=== PATIENT | male | born 1965 | race American Indian/Alaskan Native ===

== ENCOUNTER 2018-07-23 16:25 | Emergency (ER) | payer SELFPAY ==
[2018-07-23] MEDS ORDERED: KEPPRA 1,000 MG/NS 0.75% 100ML 1,000 MG/100 ML BAG IV ONE (16:33)
[2018-07-23] MEDS ORDERED: XYLOCAINE CARDIAC IV ONE ×2 (16:34→16:45)
[2018-07-23] MEDS ORDERED: VERSED IV ONE (16:34)
[2018-07-23] MEDS ORDERED: AMIDATE IV ONE ×2 (16:34→16:45)
[2018-07-23] MEDS ORDERED: ZEMURON IV ONE ×2 (16:34→16:45)
[2018-07-23] MEDS ORDERED: NACL 0.9% 1000 ML IV ONE (16:42)
[2018-07-23] MEDS ORDERED: TYLENOL PO PRN (16:42)
[2018-07-23] MEDS ORDERED: VANCOMYCIN 1,000 MG in NACL 0.9% 500 ML 500 ML IV ONE (16:42)
[2018-07-23] MEDS ORDERED: VASELINE LIP THERAPY TP PRN (16:45)
[2018-07-23] MEDS ORDERED: DECADRON IV ONE (16:45)
[2018-07-23] MEDS ORDERED: ARTIFICIAL TEARS OPHTH OINT OU PRN (16:45)
--- NOTE | 2018-07-23 16:50 | Emergency Department Report ---
ED General Adult HPI - General Chief complaint: Altered Mental Status Stated complaint: SEIZURE Time Seen by Provider: 07/23/18 16:41 Source: EMS (verbal report received from EMS.ems notes not available at time of chart dictation) Mode of arrival: Stretcher Limitations: Altered Mental Status, Physical Limitation - History of Present Illness Initial comments: This is a 52-year-old gentleman who is not known to this provider previously, who is brought to the hospital by EMS As per verbal report from EMS, patient has had at least 3 seizures prior to arrival to the emergency room. Unknown if the patient has a history of seizures , if he takes any medicines, and unknown if he is having any symptoms. EMS reports normal fingerstick in the field. Upon arrival to the ER, the patient is sonorous, has shallow breathing and is actively drooling and not protecting his airway. Given history of multiple seizures without return to normal mental status, and his obvious inability to protect his airway, the patient is intubated by myself using rapid sequence induction techniques for airway protection. Marcus intubation, he is given 100 mg of lidocaine, 1 g of Keppra, he is placed on nasal cannula at 15 L/m and received bag valve mask ventilation. Direct laryngoscopy is performed, and a 7.5 endotracheal tube is inserted after direct visualization of the vocal cords was noted. Postintubation x-ray demonstrated placement of the tube at the level of the clavicles, the tube was advanced 3 cm. The remainder of the patient's primary and secondary survey were unremarkable with the exception of a temperature of 100.7. Given history of seizure, and fever, the patient is emergently and administratively consented by myself for emergency CT scan of the brain, as well as angiogram of the head and neck to exclude large vessel occlusion. In addition, given his fever, patient is placed in isolation precautions and he is treated empirically for community-acquired meningitis. A spinal tap was attempted by myself after he was administratively consented, but was unsuccessful. Laboratory studies showed acidosis, lactic acidosis, anion gap, leukocytosis, with normal renal function. Patient is also being given a banana bag as one nurse elicited a history from a family member over the phone that he has a history of alcohol dependence. -: This afternoon Quality: other Consistency: other Improves with: other Worsens with: other Associated Symptoms: seizure, other - Related Data Allergies Allergy/AdvReac Type Severity Reaction Status Date / Time Unable to Assess Allergy Verified 07/23/18 16:39 ED Review of Systems ROS: Stated complaint: SEIZURE Other details as noted in HPI Comment: Unobtainable due to pts medical conditions ED Physical Exam - General Limitations: Altered Mental Status, Physical Limitation General appearance: obtunded - Head Head exam: Present: atraumatic, normocephalic - Eye Eye exam: Present: PERRL - ENT ENT exam: Present: normal orophraynx, normal external ear exam, other (copious secretions noted in the oropharynx) - Neck Neck exam: Present: normal inspection. Absent: tenderness, meningismus - Respiratory Respiratory exam: Present: respiratory distress, rhonchi - Cardiovascular Cardiovascular Exam: Present: regular rate, tachycardia, normal heart sounds - GI/Abdominal GI/Abdominal exam: Present: soft, normal bowel sounds. Absent: distended, tenderness, guarding, rigid, pulsatile mass - Extremities Exam Extremities exam: Present: pedal edema, other (2+ pulses in the upper, lower extremity) - Back Exam Back exam: Present: normal inspection. Absent: paraspinal tenderness, vertebral tenderness - Neurological Exam Neurological exam: Present: altered, other (prior to paralysis, moving 4 extremities spontaneously) - Psychiatric Psychiatric exam: Present: other (unable to assess, postictal, nonverbal) - Skin Skin exam: Present: dry ED Course Vital Signs 07/23/18 07/23/18 07/23/18 16:26 16:30 16:37 Temperature 100.7 F H Pulse Rate 164 166 H 140 H Respiratory 35 25 H Rate Blood Pressure 150/80 138/95 Blood Pressure 150/80 [Left] O2 Sat by Pulse 100 100 Oximetry 07/23/18 07/23/18 07/23/18 16:45 16:46 17:00 Temperature Pulse Rate 197 H 175 H 182 H Respiratory 14 15 Rate Blood Pressure 187/130 150/80 150/80 Blood Pressure [Left] O2 Sat by Pulse 97 100 96 Oximetry 07/23/18 07/23/18 07/23/18 17:16 17:30 17:44 Temperature Pulse Rate 200 H 196 H Respiratory 16 16 Rate Blood Pressure 187/130 187/130 Blood Pressure [Left] O2 Sat by Pulse 96 99 Oximetry 07/23/18 17:46 Temperature Pulse Rate 193 H Respiratory 15 Rate Blood Pressure 182/115 Blood Pressure [Left] O2 Sat by Pulse 97 Oximetry - Reevaluation(s) Reevaluation #1: 07/23/18 19:[address] angiogram of the head and neck was interpreted as negative for large vessel occlusion. A noncontrast CT scan of the brain is negative for acute disease. - Intubation Time Out Performed: Yes Sedative: Etomidate Mg Given: 20 Paralytic: Rocuronium Mg Given: 100 Laryngoscope: Abby Size: 3 ET Tube Size: 7.5 Tube Secured Depth (cm): 23 Tube Secured Location: teeth Tube Placement Confirmation: visualized tube passing t, equal breath sounds bilat, no breath sounds over epi, confirmation by capnometr Patient Tolerated Procedure: well Intubation Complications: none - Lumbar Puncture Consent Obtained: emergent situation Time Out Performed: Yes Indication for Procedure: fever work up, change in mental status Patient Position: right lateral decubitus Skin Prep: Povidone-Iodine 1% Local Anesthetic Used: Lidocaine 1% Amount of anesthesia used (mls): 6 Spinal Needle Gauge: 20G Spinal Needle Length: 3in Interspace Used: L4-L5 Complications: unable to obtain CSF, traumatic tap Patient Tolerated Procedure: well ED Medical Decision Making - Lab Data Result diagrams: 07/23/18 16:42 07/23/18 16:42 Vital Signs 07/23/18 07/23/18 07/23/18 16:26 16:30 16:37 Temperature 100.7 F H Pulse Rate 164 166 H 140 H Respiratory 35 25 H Rate Blood Pressure 150/80 138/95 Blood Pressure 150/80 [Left] O2 Sat by Pulse 100 100 Oximetry 07/23/18 07/23/18 07/23/18 16:45 16:46 17:00 Temperature Pulse Rate 197 H 175 H 182 H Respiratory 14 15 Rate Blood Pressure 187/130 150/80 150/80 Blood Pressure [Left] O2 Sat by Pulse 97 100 96 Oximetry 07/23/18 07/23/18 07/23/18 17:16 17:30 17:44 Temperature Pulse Rate 200 H 196 H Respiratory 16 16 Rate Blood Pressure 187/130 187/130 Blood Pressure [Left] O2 Sat by Pulse 96 99 Oximetry 07/23/18 17:46 Temperature Pulse Rate 193 H Respiratory 15 Rate Blood Pressure 182/115 Blood Pressure [Left] O2 Sat by Pulse 97 Oximetry Lab Results 07/23/18 07/23/18 07/23/18 Range/Units 16:30 16:42 16:42 WBC (4.5-11.0) K/mm3 RBC (3.65-5.03) M/mm3 Hgb (11.8-15.2) gm/dl Hct (35.5-45.6) % MCV (84-94) fl MCH (28-32) pg MCHC (32-34) % RDW (13.2-15.2) % Plt Count (140-440) K/mm3 Lymph % (Auto) Lymph # Add Manual Diff Total Counted Seg Neutrophils % Seg Neuts % (Manual) (40.0-70.0) % Band Neutrophils % % Lymphocytes % (Manual) (13.4-35.0) % Reactive Lymphs % (Man) % Monocytes % (Manual) (0.0-7.3) % Eosinophils % (Manual) (0.0-4.3) % Basophils % (Manual) (0.0-1.8) % Metamyelocytes % % Myelocytes % % Promyelocytes % % Blast Cells % % Nucleated RBC % Seg Neutrophils # Man (1.8-7.7) K/mm3 Band Neutrophils # K/mm3 Lymphocytes # (Manual) (1.2-5.4) K/mm3 Abs React Lymphs (Man) K/mm3 Monocytes # (Manual) (0.0-0.8) K/mm3 Eosinophils # (Manual) (0.0-0.4) K/mm3 Basophils # (Manual) (0.0-0.1) K/mm3 Metamyelocytes # K/mm3 Myelocytes # K/mm3 Promyelocytes # K/mm3 Blast Cells # K/mm3 WBC Morphology Hypersegmented Neuts Hyposegmented Neuts Hypogranular Neuts Smudge Cells Toxic Granulation Toxic Vacuolation Dohle Bodies Pelger-Huet Anomaly Jez Rods Platelet Estimate Clumped Platelets Plt Clumps, EDTA Large Platelets Giant Platelets Platelet Satelliting Plt Morphology Comment RBC Morphology Dimorphic RBCs Polychromasia Hypochromasia Poikilocytosis Anisocytosis Microcytosis Macrocytosis Spherocytes Pappenheimer Bodies Sickle Cells Target Cells Tear Drop Cells Ovalocytes Helmet Cells Corral-Mendenhall Bodies [place] Rings Zafar Cells Bite Cells Crenated Cell Elliptocytes Acanthocytes (Spur) Rouleaux Hemoglobin C Crystals Schistocytes Malaria parasites Ike Bodies Hem Pathologist Commnt PT (12.2-14.9) Sec. INR (0.87-1.13) APTT (24.2-36.6) Sec. POC ABG pH (7.35-7.45) POC ABG pCO2 (35-45) POC ABG pO2 (80-105) POC ABG HCO3 POC ABG Total CO2 POC ABG O2 Sat POC ABG Base Excess FiO2 % Sodium (137-145) mmol/L Potassium (3.6-5.0) mmol/L Chloride (98-107) mmol/L Carbon Dioxide (22-30) mmol/L Anion Gap mmol/L BUN (9-20) mg/dL Creatinine (0.8-1.5) mg/dL Estimated GFR ml/min BUN/Creatinine Ratio % Glucose (75-100) mg/dL POC Glucose 182 H (70-105) Lactic Acid (0.7-2.0) mmol/L Calcium (8.4-10.2) mg/dL Total Bilirubin (0.1-1.2) mg/dL AST (5-40) units/L ALT (7-56) units/L Alkaline Phosphatase (35-129) units/L Total Creatine Kinase (55-170) units/L Troponin T (0.00-0.029) ng/mL Total Protein (6.3-8.2) g/dL Albumin (3.9-5) g/dL Albumin/Globulin Ratio % Urine Color Yellow (Yellow) Urine Turbidity Cloudy (Clear) Urine pH 5.0 (5.0-7.0) Ur Specific [place] 1.015 (1.003-1.030) Urine Protein >500 (Negative) mg/dL Urine Glucose (UA) Neg (Negative) mg/dL Urine Ketones Neg (Negative) mg/dL Urine Blood Sm (Negative) Urine Nitrite Pos (Negative) Urine Bilirubin Neg (Negative) Urine Urobilinogen < 2.0 (<2.0) mg/dL Ur Leukocyte Esterase Sm (Negative) Urine WBC (Auto) 55.0 H (0.0-6.0) /HPF Urine RBC (Auto) 10.0 (0.0-6.0) /HPF U Epithel Cells (Auto) 4.0 (0-13.0) /HPF Urine Bacteria (Auto) 1+ (Negative) /HPF Amorphous Crystals 1+ Salicylates (2.8-20.0) mg/dL Acetaminophen (10.0-30.0) ug/mL Plasma/Serum Alcohol (0-0.07) % Blood Type A POSITIVE Antibody Screen Negative Crossmatch See Detail 07/23/18 07/23/18 07/23/18 Range/Units 16:42 16:42 16:42 WBC 18.2 H (4.5-11.0) K/mm3 RBC 4.23 (3.65-5.03) M/mm3 Hgb 12.0 (11.8-15.2) gm/dl Hct 37.7 (35.5-45.6) % MCV 89 (84-94) fl MCH 28 (28-32) pg MCHC 32 (32-34) % RDW 17.8 H (13.2-15.2) % Plt Count 256 (140-440) K/mm3 Lymph % (Auto) [employer] Operator Lymph # Electric [employer] Operator Add Manual Diff Complete Total Counted 100 Seg Neutrophils % [employer] Operator Seg Neuts % (Manual) 39.0 L (40.0-70.0) % Band Neutrophils % 0 % Lymphocytes % (Manual) 57.0 H (13.4-35.0) % Reactive Lymphs % (Man) 0 % Monocytes % (Manual) 4.0 (0.0-7.3) % Eosinophils % (Manual) 0 (0.0-4.3) % Basophils % (Manual) 0 (0.0-1.8) % Metamyelocytes % 0 % Myelocytes % 0 % Promyelocytes % 0 % Blast Cells % 0 % Nucleated RBC % Not Reportable Seg Neutrophils # Man 7.1 (1.8-7.7) K/mm3 Band Neutrophils # 0.0 K/mm3 Lymphocytes # (Manual) 10.4 H (1.2-5.4) K/mm3 Abs React Lymphs (Man) 0.0 K/mm3 Monocytes # (Manual) 0.7 (0.0-0.8) K/mm3 Eosinophils # (Manual) 0.0 (0.0-0.4) K/mm3 Basophils # (Manual) 0.0 (0.0-0.1) K/mm3 Metamyelocytes # 0.0 K/mm3 Myelocytes # 0.0 K/mm3 Promyelocytes # 0.0 K/mm3 Blast Cells # 0.0 K/mm3 WBC Morphology Not Reportable Hypersegmented Neuts Not Reportable Hyposegmented Neuts Not Reportable Hypogranular Neuts Not Reportable Smudge Cells Not Reportable Toxic Granulation Not Reportable Toxic Vacuolation Not Reportable Dohle Bodies Not Reportable Pelger-Huet Anomaly Not Reportable Jez Rods Not Reportable Platelet Estimate Consistent w auto Clumped Platelets Not Reportable Plt Clumps, EDTA Not Reportable Large Platelets Not Reportable Giant Platelets Not Reportable Platelet Satelliting Not Reportable Plt Morphology Comment Not Reportable RBC Morphology Normal Dimorphic RBCs Not Reportable Polychromasia Not Reportable Hypochromasia Not Reportable Poikilocytosis Not Reportable Anisocytosis Not Reportable Microcytosis Not Reportable Macrocytosis Not Reportable Spherocytes Not Reportable Pappenheimer Bodies Not Reportable Sickle Cells Not Reportable Target Cells Not Reportable Tear Drop Cells Not Reportable Ovalocytes Not Reportable Helmet Cells Not Reportable Corral-Mendenhall Bodies Not Reportable [place] Rings Not Reportable Zafar Cells Not Reportable Bite Cells Not Reportable Crenated Cell Not Reportable Elliptocytes Not Reportable Acanthocytes (Spur) Not Reportable Rouleaux Not Reportable Hemoglobin C Crystals Not Reportable Schistocytes Not Reportable Malaria parasites Not Reportable Ike Bodies Not Reportable Hem Pathologist Commnt No PT 15.2 H (12.2-14.9) Sec. INR 1.14 H (0.87-1.13) APTT 39.3 H (24.2-36.6) Sec. POC ABG pH (7.35-7.45) POC ABG pCO2 (35-45) POC ABG pO2 (80-105) POC ABG HCO3 POC ABG Total CO2 POC ABG O2 Sat POC ABG Base Excess FiO2 % Sodium 135 L (137-145) mmol/L Potassium 4.0 (3.6-5.0) mmol/L Chloride 90.4 L (98-107) mmol/L Carbon Dioxide 11 L (22-30) mmol/L Anion Gap 38 mmol/L BUN 6 L (9-20) mg/dL Creatinine 0.8 (0.8-1.5) mg/dL Estimated GFR > 60 ml/min BUN/Creatinine Ratio 8 % Glucose 183 H (75-100) mg/dL POC Glucose (70-105) Lactic Acid (0.7-2.0) mmol/L Calcium 8.9 (8.4-10.2) mg/dL Total Bilirubin 0.90 (0.1-1.2) mg/dL AST 35 (5-40) units/L ALT 11 (7-56) units/L Alkaline Phosphatase 87 (35-129) units/L Total Creatine Kinase 152 (55-170) units/L Troponin T < 0.010 (0.00-0.029) ng/mL Total Protein 8.9 H (6.3-8.2) g/dL Albumin 3.5 L (3.9-5) g/dL Albumin/Globulin Ratio 0.6 % Urine Color (Yellow) Urine Turbidity (Clear) Urine pH (5.0-7.0) Ur Specific [place] (1.003-1.030) Urine Protein (Negative) mg/dL Urine Glucose (UA) (Negative) mg/dL Urine Ketones (Negative) mg/dL Urine Blood (Negative) Urine Nitrite (Negative) Urine Bilirubin (Negative) Urine Urobilinogen (<2.0) mg/dL Ur Leukocyte Esterase (Negative) Urine WBC (Auto) (0.0-6.0) /HPF Urine RBC (Auto) (0.0-6.0) /HPF U Epithel Cells (Auto) (0-13.0) /HPF Urine Bacteria (Auto) (Negative) /HPF Amorphous Crystals Salicylates (2.8-20.0) mg/dL Acetaminophen (10.0-30.0) ug/mL Plasma/Serum Alcohol (0-0.07) % Blood Type Antibody Screen Crossmatch 07/23/18 07/23/18 07/23/18 Range/Units 16:42 16:42 16:42 WBC (4.5-11.0) K/mm3 RBC (3.65-5.03) M/mm3 Hgb (11.8-15.2) gm/dl Hct (35.5-45.6) % MCV (84-94) fl MCH (28-32) pg MCHC (32-34) % RDW (13.2-15.2) % Plt Count (140-440) K/mm3 Lymph % (Auto) Lymph # Add Manual Diff Total Counted Seg Neutrophils % Seg Neuts % (Manual) (40.0-70.0) % Band Neutrophils % % Lymphocytes % (Manual) (13.4-35.0) % Reactive Lymphs % (Man) % Monocytes % (Manual) (0.0-7.3) % Eosinophils % (Manual) (0.0-4.3) % Basophils % (Manual) (0.0-1.8) % Metamyelocytes % % Myelocytes % % Promyelocytes % % Blast Cells % % Nucleated RBC % Seg Neutrophils # Man (1.8-7.7) K/mm3 Band Neutrophils # K/mm3 Lymphocytes # (Manual) (1.2-5.4) K/mm3 Abs React Lymphs (Man) K/mm3 Monocytes # (Manual) (0.0-0.8) K/mm3 Eosinophils # (Manual) (0.0-0.4) K/mm3 Basophils # (Manual) (0.0-0.1) K/mm3 Metamyelocytes # K/mm3 Myelocytes # K/mm3 Promyelocytes # K/mm3 Blast Cells # K/mm3 WBC Morphology Hypersegmented Neuts Hyposegmented Neuts Hypogranular Neuts Smudge Cells Toxic Granulation Toxic Vacuolation Dohle Bodies Pelger-Huet Anomaly Jez Rods Platelet Estimate Clumped Platelets Plt Clumps, EDTA Large Platelets Giant Platelets Platelet Satelliting Plt Morphology Comment RBC Morphology Dimorphic RBCs Polychromasia Hypochromasia Poikilocytosis Anisocytosis Microcytosis Macrocytosis Spherocytes Pappenheimer Bodies Sickle Cells Target Cells Tear Drop Cells Ovalocytes Helmet Cells Corral-Mendenhall Bodies [place] Rings Zafar Cells Bite Cells Crenated Cell Elliptocytes Acanthocytes (Spur) Rouleaux Hemoglobin C Crystals Schistocytes Malaria parasites Ike Bodies Hem Pathologist Commnt PT (12.2-14.9) Sec. INR (0.87-1.13) APTT (24.2-36.6) Sec. POC ABG pH (7.35-7.45) POC ABG pCO2 (35-45) POC ABG pO2 (80-105) POC ABG HCO3 POC ABG Total CO2 POC ABG O2 Sat POC ABG Base Excess FiO2 % Sodium (137-145) mmol/L Potassium (3.6-5.0) mmol/L Chloride (98-107) mmol/L Carbon Dioxide (22-30) mmol/L Anion Gap mmol/L BUN (9-20) mg/dL Creatinine (0.8-1.5) mg/dL Estimated GFR ml/min BUN/Creatinine Ratio % Glucose (75-100) mg/dL POC Glucose (70-105) Lactic Acid 19.30 H* (0.7-2.0) mmol/L Calcium (8.4-10.2) mg/dL Total Bilirubin (0.1-1.2) mg/dL AST (5-40) units/L ALT (7-56) units/L Alkaline Phosphatase (35-129) units/L Total Creatine Kinase (55-170) units/L Troponin T (0.00-0.029) ng/mL Total Protein (6.3-8.2) g/dL Albumin (3.9-5) g/dL Albumin/Globulin Ratio % Urine Color (Yellow) Urine Turbidity (Clear) Urine pH (5.0-7.0) Ur Specific [place] (1.003-1.030) Urine Protein (Negative) mg/dL Urine Glucose (UA) (Negative) mg/dL Urine Ketones (Negative) mg/dL Urine Blood (Negative) Urine Nitrite (Negative) Urine Bilirubin (Negative) Urine Urobilinogen (<2.0) mg/dL Ur Leukocyte Esterase (Negative) Urine WBC (Auto) (0.0-6.0) /HPF Urine RBC (Auto) (0.0-6.0) /HPF U Epithel Cells (Auto) (0-13.0) /HPF Urine Bacteria (Auto) (Negative) /HPF Amorphous Crystals Salicylates < 0.3 L (2.8-20.0) mg/dL Acetaminophen < 5.0 L (10.0-30.0) ug/mL Plasma/Serum Alcohol (0-0.07) % Blood Type Antibody Screen Crossmatch 07/23/18 07/23/18 Range/Units 16:42 17:26 WBC (4.5-11.0) K/mm3 RBC (3.65-5.03) M/mm3 Hgb (11.8-15.2) gm/dl Hct (35.5-45.6) % MCV (84-94) fl MCH (28-32) pg MCHC (32-34) % RDW (13.2-15.2) % Plt Count (140-440) K/mm3 Lymph % (Auto) Lymph # Add Manual Diff Total Counted Seg Neutrophils % Seg Neuts % (Manual) (40.0-70.0) % Band Neutrophils % % Lymphocytes % (Manual) (13.4-35.0) % Reactive Lymphs % (Man) % Monocytes % (Manual) (0.0-7.3) % Eosinophils % (Manual) (0.0-4.3) % Basophils % (Manual) (0.0-1.8) % Metamyelocytes % % Myelocytes % % Promyelocytes % % Blast Cells % % Nucleated RBC % Seg Neutrophils # Man (1.8-7.7) K/mm3 Band Neutrophils # K/mm3 Lymphocytes # (Manual) (1.2-5.4) K/mm3 Abs React Lymphs (Man) K/mm3 Monocytes # (Manual) (0.0-0.8) K/mm3 Eosinophils # (Manual) (0.0-0.4) K/mm3 Basophils # (Manual) (0.0-0.1) K/mm3 Metamyelocytes # K/mm3 Myelocytes # K/mm3 Promyelocytes # K/mm3 Blast Cells # K/mm3 WBC Morphology Hypersegmented Neuts Hyposegmented Neuts Hypogranular Neuts Smudge Cells Toxic Granulation Toxic Vacuolation Dohle Bodies Pelger-Huet Anomaly Jez Rods Platelet Estimate Clumped Platelets Plt Clumps, EDTA Large Platelets Giant Platelets Platelet Satelliting Plt Morphology Comment RBC Morphology Dimorphic RBCs Polychromasia Hypochromasia Poikilocytosis Anisocytosis Microcytosis Macrocytosis Spherocytes Pappenheimer Bodies Sickle Cells Target Cells Tear Drop Cells Ovalocytes Helmet Cells Corral-Mendenhall Bodies [place] Rings [place] Cells Bite Cells Crenated Cell Elliptocytes Acanthocytes (Spur) Rouleaux Hemoglobin C Crystals Schistocytes Malaria parasites Ike Bodies Hem Pathologist Commnt PT (12.2-14.9) Sec. INR (0.87-1.13) APTT (24.2-36.6) Sec. POC ABG pH 7.082 L (7.35-7.45) POC ABG pCO2 55.9 H (35-45) POC ABG pO2 199 H (80-105) POC ABG HCO3 16.6 POC ABG Total CO2 18 POC ABG O2 Sat 99 POC ABG Base Excess -13 FiO2 50 % Sodium (137-145) mmol/L Potassium (3.6-5.0) mmol/L Chloride (98-107) mmol/L Carbon Dioxide (22-30) mmol/L Anion Gap mmol/L BUN (9-20) mg/dL Creatinine (0.8-1.5) mg/dL Estimated GFR ml/min BUN/Creatinine Ratio % Glucose (75-100) mg/dL POC Glucose (70-105) Lactic Acid (0.7-2.0) mmol/L Calcium (8.4-10.2) mg/dL Total Bilirubin (0.1-1.2) mg/dL AST (5-40) units/L ALT (7-56) units/L Alkaline Phosphatase (35-129) units/L Total Creatine Kinase (55-170) units/L Troponin T (0.00-0.029) ng/mL Total Protein (6.3-8.2) g/dL Albumin (3.9-5) g/dL Albumin/Globulin Ratio % Urine Color (Yellow) Urine Turbidity (Clear) Urine pH (5.0-7.0) Ur Specific [place] (1.003-1.030) Urine Protein (Negative) mg/dL Urine Glucose (UA) (Negative) mg/dL Urine Ketones (Negative) mg/dL Urine Blood (Negative) Urine Nitrite (Negative) Urine Bilirubin (Negative) Urine Urobilinogen (<2.0) mg/dL Ur Leukocyte Esterase (Negative) Urine WBC (Auto) (0.0-6.0) /HPF Urine RBC (Auto) (0.0-6.0) /HPF U Epithel Cells (Auto) (0-13.0) /HPF Urine Bacteria (Auto) (Negative) /HPF Amorphous Crystals Salicylates (2.8-20.0) mg/dL Acetaminophen (10.0-30.0) ug/mL Plasma/Serum Alcohol 0.05 (0-0.07) % Blood Type Antibody Screen Crossmatch - EKG Data When compared to previous EKG there are: previous EKG unavailable 07/23/18 19:09 Tachycardia, 197 bpm, normal axis, QT within normal limits, not a STEMI. - Radiology Data Radiology results: report reviewed, image reviewed X-ray the chest shows right perihilar, right lower lobe pneumonia, appropriate placement of endotracheal tube and oral gastric tube. - Medical Decision Making Differential diagnosis, including but not limited to: Status epilepticus, pneumonia, urinary tract infection, meningitis, alcohol withdrawal syndrome, sepsis Assessment and plan: 52-year-old male in the status epilepticus algorithm requiring intubation. Has a low-grade fever and an x-ray of the chest that suggested pneumonia versus aspiration pneumonitis and a urinalysis that suggested possible urinary tract infection. Spinal tap has failed. He will be kept on isolation precautions. He'll be treated empirically for community- acquired meningitis. He is loaded with Keppra as an antiepileptic drug. Thus far, the paralysis and intubation, he's not had any recurrent seizures. This hospital does not have the capability to provide continuous EEG monitoring , does not have the capability to provide neuro critical care consultation. He will therefore be transferred to the [facility], [facility], where he was graciously accepted by the neuro critical care physician, Dr. Apodaca He does not have any family members immediately available to discuss his medical care, the patient has an emergency medical condition that requires higher level of care in this facility can provide. He is therefore administratively consented by this provider for transfer. Critical Care Time: Yes Critical care time in (mins) excluding proc time.: 60 Critical care attestation.: If time is entered above; I have spent that time in minutes in the direct care of this critically ill patient, excluding procedure time. ED Disposition Clinical Impression: Status epilepticus Disposition: DC/TX- [facility] IP Is pt being admited?: No Does the pt Need Aspirin: No Condition: Critical Referrals: PRIMARY CARE, [Primary Care Provider] - 3-5 Days
[2018-07-23] MEDS ORDERED: XYLOCAINE 2%/EPI 1:100,000 INFILTRATI ONE (16:51)
[2018-07-23] MEDS ORDERED: BETADINE TP STA (16:51)
[2018-07-23] MEDS ORDERED: fentaNYL DRIP Premix 2,000 MCG/100 ML BAG IV SCH (17:00)
[2018-07-23] MEDS ORDERED: DIPRIVAN 10 MG/ML 1,000 MG/100 ML BOTTLE IV SCH ×2 (17:00→19:00)
[2018-07-23] MEDS ORDERED: NACL 0.9% 500 ML IV SCH (17:00)
[2018-07-23] MEDS ORDERED: SUBLIMAZE IV PRN (17:03)
[2018-07-23] MEDS ORDERED: ATIVAN IV PRN (17:03)
[2018-07-23 17:11] LABS: Hematocrit 37.7 % (35.5-45.6); Mean Corpuscular HGB Conc 32 % (32-34); Mean Corpuscular Hemoglobin 28 pg (28-32); Mean Corpuscular Volume 89 fl (84-94); Platelet Count 256 K/mm3 (140-440); Red Blood Count 4.23 M/mm3 (3.65-5.03); Red Cell Distribution Width 17.8 % (13.2-15.2)
[2018-07-23 17:20] LABS: Amorphous Crystals,Urine 1+; Bilirubin,Urine NEG (Negative); Blood,Urine SM (Negative); Color,Urine Yellow (Yellow); Protein,Urine >500 mg/dL (Negative); Urobilinogen,Urine < 2.0 mg/dL (<2.0)
[2018-07-23 17:21] LABS: Bacteria,Urine 1+ /HPF (Negative); INR 1.14 (0.87-1.13)
[2018-07-23 17:22] LABS: Partial Thromboplastin Time 39.3 Sec. (24.2-36.6)
[2018-07-23 17:54] LABS: Alanine Aminotransferase 11 units/L (7-56); Albumin 3.5 g/dL (3.9-5); BUN/Creatinine Ratio 8; Blood Urea Nitrogen 6 mg/dL (9-20); Calcium 8.9 mg/dL (8.4-10.2); Hemolysis Index 17
[2018-07-23] MEDS ORDERED: ROCEPHIN/NS 2 GM/100 ML 2 GM/100 ML BAG IV SCH (18:00)
[2018-07-23] MEDS ORDERED: VANCOMYCIN/NS 1 GM/250 ML 1 GM/250 ML BAG IV ONE (18:00)
--- NOTE | 2018-07-23 18:18 | XRay Report ---
FINAL REPORT EXAM: XR CHEST 1V AP HISTORY: ETT placement TECHNIQUE: AP portable view of the chest PRIORS: None. FINDINGS: Lines, tubes, and devices: Endotracheal tube terminates at the level of the clavicles located at least 5.5 cm above the maria teresa. A nasogastric tube terminates below the left hemidiaphragm, off the edge of the film, likely in the stomach. Lungs and pleura: Trachea is normal in position. Linear atelectasis or infiltrate extending from the right hilum laterally is noted. There is also linear atelectasis in the left base. These findings should be followed to radiographic resolution. Cardiomediastinal silhouette: Cardiac and mediastinal silhouettes are unremarkable. Other: Bony structures are intact. IMPRESSION: Satisfactory ET tube and nasogastric tube placement. Linear atelectasis or infiltrate extending from the right hilum and in the left base.. These findings should be followed to radiographic resolution.
[2018-07-23] MEDS ORDERED: DIPRIVAN 10 MG/ML 1,000 MG/100 ML BOTTLE IV ONE (18:40)
[2018-07-23] MEDS ORDERED: VERSED IV NR (19:00)
[2018-07-23 19:03] LABS: Basophils % (Manual) 0 % (0.0-1.8); Eosinophils % (Manual) 0 % (0.0-4.3); RBC Morphology Normal; Total Cells Counted 100
[2018-07-23 19:04] LABS: Platelet Estimate Consistent w Auto
--- NOTE | 2018-07-23 19:08 | Cat Scan Report ---
FINAL REPORT PROCEDURE: CT HEAD/BRAIN WO CON TECHNIQUE: Computerized tomography of the head was performed without contrast material. HISTORY: ams seizure COMPARISON: No prior studies are available for comparison. FINDINGS: There is no CT evidence of intracranial mass, hemorrhage, acute territorial infarction, or hydrocephalus. The intracranial arteries are symmetric in density. The calvarium is intact. There is bilateral maxillary sinus mucosal thickening. IMPRESSION: No CT evidence of acute intracranial abnormality
--- NOTE | 2018-07-23 19:13 | Cat Scan Report ---
FINAL REPORT PROCEDURE: CT ANGIO HEAD TECHNIQUE: Computerized tomographic angiography of the head was performed after the IV injection of iodinated nonionic contrast including image processing. The image data was postprocessed using 2-dimensional multiplanar reformatted (MPR) and 3-dimensional (MIP and/or volume rendered) techniques. HISTORY: ams seizure COMPARISON: No prior studies are available for comparison. FINDINGS: Cerebrum: No evidence of hemorrhage, acute ischemia or mass. Cerebellum: No evidence of hemorrhage, acute ischemia or mass. Subarachnoid spaces and ventricles: Normal. Intracranial vessels: Carotid siphon: Normal. Anterior cerebral: Bilaterally patent. Bilateral anterior cerebral arteries originate from the right carotid Middle cerebral: Normal. Posterior cerebral:Normal. Vertebral arteries including basilar: Normal. Aneurysms: None. Dural sinuses: Normal. IMPRESSION: No acute abnormality
--- NOTE | 2018-07-23 19:18 | Cat Scan Report ---
FINAL REPORT PROCEDURE: CT ANGIO NECK TECHNIQUE: Computerized tomographic angiography of the neck was performed after the IV injection of iodinated nonionic contrast including image processing. The image data was postprocessed using 2-dimensional multiplanar reformatted (MPR) and 3-dimensional (MIP and/or volume rendered) techniques. HISTORY: Altered mental status seizure COMPARISON: No prior studies are available for comparison. Note: Assessment of carotid artery stenosis is based on measurement of the distal internal carotid artery diameter as the denominator for stenosis calculations and the [place] Symptomatic Carotid Endarterectomy Trial (NASCET) stenosis criteria . CPT 3100F FINDINGS: Sinuses: Normal . Non vascular cervical structures: No significant abnormality . Aortic arch: Normal . Right carotid artery: There is atherosclerotic calcification of the carotid bulb, with no narrowing. The common and internal carotid arteries are widely patent. Left carotid artery: Common and internal carotid arteries are widely patent. Vertebral arteries: Normal . Cervical spine degenerative changes IMPRESSION: No arterial occlusion or stenosis
[2018-07-23] MEDS ORDERED: TYLENOL PR ONE (19:33)
[2018-07-23] MEDS ORDERED: NACL 0.9% 1000 ML 1,000 ML IV ONE (19:43)
[2018-07-23] MEDS ORDERED: 1: FOLVITE 1 MG, INFUVITE 10 ML, VITAMIN B-1 100 MG in NACL 0.9% 1000 ML 988.8 ML 2: NA IV SCH (20:00)
[2018-07-23 21:21] VITALS: BP 127/90
[2018-07-23] MEDS ORDERED: KEPPRA 1,000 MG/NS 0.75% 100ML 1,000 MG/100 ML BAG IV SCH (22:00)
[2018-07-23] MEDS ORDERED: KEPPRA 1,000 MG in NACL 0.9% 100 ML IV SCH (22:00)
[2018-07-23 22:17] LABS: BUN/Creatinine Ratio TNR; Blood Urea Nitrogen TNR mg/dL (9-20)
[2018-07-23 22:18] LABS: Calcium TNR mg/dL (8.4-10.2); Hemolysis Index TNR
== END 2018-07-23 21:46 | disposition short-term general hospital (02) ==
LOC: EDBD → ED 16:25
DX: G40.901 Epilepsy, unspecified, not intractable, with status epilepticus (principal)
CPT/HCPCS: 31500; 36415; 62270; 70450; 70496; 70498; 71045; 80048; 80053; 81001; 82140; 82550; 82803; 82962; 84484; 85007; 85025; 85610; 85730; 86850; 86900; 86901; 86920; 87040; 87070; 87076; 87086; 87186; 87205; 93005; 93010; 96365; 96367; 96375; 99291; G0480; J0696; J1100; J1953; J2001; J2060; J2250; J2704; J3010; J3370; J3411; J7030; Q9967; 80320; 94002

== ENCOUNTER 2021-06-17 10:25 | Emergency (ER) | payer SELFPAY ==
[2021-06-17 11:28] VITALS: BP 138/92
[2021-06-17] MEDS ORDERED: chlordiazePOXIDE 25 MG CAP PO PRN ×2 (11:28)
[2021-06-17] MEDS ORDERED: LORazepam 2 MG/ML VIAL IV PRN ×3 (11:28)
--- NOTE | 2021-06-17 11:51 | Emergency Department Report ---
ED General Adult HPI - General Chief complaint: Seizure Stated complaint: SEIZURE Time Seen by Provider: 06/17/21 11:25 Source: patient, EMS Mode of arrival: Stretcher Limitations: Other - History of Present Illness Initial comments: Patient presents to the emergency department via EMS for altered mental status. EMS was contacted by bystanders for patient was found on the side of the road unresponsive initially. Initially the patient states he does not have a history of seizures but does states he does have a history of seizures and does not take his medications. Patient complains of a mild headache and there is ecchymosis to the right temporal region. Patient is a odor of urine on exam. He denies chest pain, shortness breath, or abdominal pain. -: Sudden Location: head Severity scale (0 -10): 1 Quality: aching Consistency: now resolved Improves with: none Worsens with: none Associated Symptoms: denies other symptoms Treatments Prior to Arrival: none - Related Data Previous Rx's Medication Instructions Recorded Last Taken Type levETIRAcetam [Keppra TAB] 500 mg PO BID #60 tablet 06/17/21 Unknown Rx Allergies Allergy/AdvReac Type Severity Reaction Status Date / Time No Known Allergies Allergy Unverified 06/17/21 10:52 ED Review of Systems ROS: Stated complaint: SEIZURE Other details as noted in HPI Comment: All other systems reviewed and negative Constitutional: denies: chills, fever Eyes: denies: eye pain, eye discharge, vision change ENT: denies: ear pain, throat pain Respiratory: denies: cough, shortness of breath, wheezing Cardiovascular: denies: chest pain, palpitations Endocrine: no symptoms reported Gastrointestinal: denies: abdominal pain, nausea, diarrhea Genitourinary: denies: urgency, dysuria Musculoskeletal: denies: back pain, joint swelling, arthralgia Skin: denies: rash, lesions Neurological: denies: headache, weakness, paresthesias Psychiatric: denies: anxiety, depression Hematological/Lymphatic: denies: easy bleeding, easy bruising ED Past Medical Hx - Past Medical History Previous Medical History?: Yes Hx Seizures: Yes Additional medical history: unknown - Surgical History Additional Surgical History: unknown - Social History Smoking Status: Current Some Day Smoker Substance Use Type: Alcohol - Medications Home Medications: Home Medications Medication Instructions Recorded Confirmed Last Taken Type levETIRAcetam [Keppra TAB] 500 mg PO BID #60 tablet 06/17/21 Unknown Rx ED Physical Exam - General Limitations: Other General appearance: alert, in no apparent distress - Head Head exam: Present: normocephalic, other (Ecchymosis to the right temporal region) - Eye Eye exam: Present: normal appearance - ENT ENT exam: Present: mucous membranes moist - Neck Neck exam: Present: normal inspection - Respiratory Respiratory exam: Present: normal lung sounds bilaterally. Absent: respiratory distress - Cardiovascular Cardiovascular Exam: Present: regular rate, normal rhythm. Absent: systolic murmur, diastolic murmur, rubs, gallop - GI/Abdominal GI/Abdominal exam: Present: soft, normal bowel sounds. Absent: distended, tenderness - Rectal Rectal exam: Present: deferred - Extremities Exam Extremities exam: Present: normal inspection - Back Exam Back exam: Present: normal inspection - Neurological Exam Neurological exam: Present: alert, oriented X3, CN II-XII intact. Absent: motor sensory deficit - Psychiatric Psychiatric exam: Present: normal affect, normal mood - Skin Skin exam: Present: warm, dry, intact, normal color. Absent: rash ED Course Vital Signs 06/17/21 06/17/21 06/17/21 11:02 11:03 11:05 Temperature 98.6 F Pulse Rate 87 Respiratory 18 16 Rate Blood Pressure Blood Pressure 140/83 [Left] O2 Sat by Pulse 95 100 97 Oximetry 06/17/21 06/17/21 11:15 11:28 Temperature 98.5 F Pulse Rate Respiratory Rate Blood Pressure 138/92 Blood Pressure [Left] O2 Sat by Pulse 97 Oximetry ED Medical Decision Making - Lab Data Result diagrams: 06/17/21 11:39 06/17/21 11:39 Lab Results 06/17/21 06/17/21 06/17/21 Range/Units 11:12 11:39 11:39 WBC 3.8 L (4.5-11.0) K/mm3 RBC 4.02 (3.65-5.03) M/mm3 Hgb 12.7 (11.8-15.2) gm/dl Hct 35.5 (35.5-45.6) % MCV 88 (84-94) fl MCH 32 (28-32) pg MCHC 36 H (32-34) % RDW 13.6 (13.2-15.2) % Plt Count 128 L (140-440) K/mm3 Lymph % (Auto) 13.0 L (13.4-35.0) % [place] % (Auto) 7.8 H (0.0-7.3) % Eos % (Auto) 0.0 (0.0-4.3) % Baso % (Auto) 0.4 (0.0-1.8) % Lymph # (Auto) 0.5 L (1.2-5.4) K/mm3 [place] # (Auto) 0.3 (0.0-0.8) K/mm3 Eos # (Auto) 0.0 (0.0-0.4) K/mm3 Baso # (Auto) 0.0 (0.0-0.1) K/mm3 Seg Neutrophils % 78.8 H (40.0-70.0) % Seg Neutrophils # 3.0 (1.8-7.7) K/mm3 Sodium 120 L (137-145) mmol/L Potassium 4.4 (3.6-5.0) mmol/L Chloride 78.4 L (98-107) mmol/L Carbon Dioxide 21 L (22-30) mmol/L Anion Gap 25 mmol/L BUN 5 L (9-20) mg/dL Creatinine 0.7 L (0.8-1.3) mg/dL Estimated GFR > 60 ml/min BUN/Creatinine Ratio 7 % Glucose 82 (75-100) mg/dL POC Glucose 109 H (70-105) mg/dL Calcium 10.0 (8.4-10.2) mg/dL Total Bilirubin 1.20 (0.1-1.2) mg/dL AST 100 H (5-40) units/L ALT 44 (7-56) units/L Alkaline Phosphatase 64 (35-129) units/L Total Protein 9.4 H (6.3-8.2) g/dL Albumin 4.7 (3.9-5) g/dL Albumin/Globulin Ratio 1.0 % Urine Color (Yellow) Urine Turbidity (Clear) Urine pH (5.0-7.0) Ur Specific [place] (1.003-1.030) Urine Protein (Negative) mg/dL Urine Glucose (UA) (Negative) mg/dL Urine Ketones (Negative) mg/dL Urine Blood (Negative) Urine Nitrite (Negative) Urine Bilirubin (Negative) Urine Urobilinogen (<2.0) mg/dL Ur Leukocyte Esterase (Negative) Urine WBC (Auto) (0.0-6.0) /HPF Urine RBC (Auto) (0.0-6.0) /HPF Hyaline Casts /LPF Urine Mucus /HPF Urine Opiates Screen Urine Methadone Screen Ur Barbiturates Screen Ur Phencyclidine Scrn Ur Amphetamines Screen U Benzodiazepines Scrn Urine Cocaine Screen U Marijuana (THC) Screen Drugs of Abuse Note 06/17/21 06/17/21 Range/Units 12:03 Unknown WBC (4.5-11.0) K/mm3 RBC (3.65-5.03) M/mm3 Hgb (11.8-15.2) gm/dl Hct (35.5-45.6) % MCV (84-94) fl MCH (28-32) pg MCHC (32-34) % RDW (13.2-15.2) % Plt Count (140-440) K/mm3 Lymph % (Auto) (13.4-35.0) % [place] % (Auto) (0.0-7.3) % Eos % (Auto) (0.0-4.3) % Baso % (Auto) (0.0-1.8) % Lymph # (Auto) (1.2-5.4) K/mm3 [place] # (Auto) (0.0-0.8) K/mm3 Eos # (Auto) (0.0-0.4) K/mm3 Baso # (Auto) (0.0-0.1) K/mm3 Seg Neutrophils % (40.0-70.0) % Seg Neutrophils # (1.8-7.7) K/mm3 Sodium (137-145) mmol/L Potassium (3.6-5.0) mmol/L Chloride (98-107) mmol/L Carbon Dioxide (22-30) mmol/L Anion Gap mmol/L BUN (9-20) mg/dL Creatinine (0.8-1.3) mg/dL Estimated GFR ml/min BUN/Creatinine Ratio % Glucose (75-100) mg/dL POC Glucose (70-105) mg/dL Calcium (8.4-10.2) mg/dL Total Bilirubin (0.1-1.2) mg/dL AST (5-40) units/L ALT (7-56) units/L Alkaline Phosphatase (35-129) units/L Total Protein (6.3-8.2) g/dL Albumin (3.9-5) g/dL Albumin/Globulin Ratio % Urine Color Yellow (Yellow) Urine Turbidity Clear (Clear) Urine pH 5.0 (5.0-7.0) Ur Specific [place]bur 1.014 (1.003-1.030) Urine Protein 100 mg/dl (Negative) mg/dL Urine Glucose (UA) Neg (Negative) mg/dL Urine Ketones 20 (Negative) mg/dL Urine Blood Mod (Negative) Urine Nitrite Neg (Negative) Urine Bilirubin Neg (Negative) Urine Urobilinogen 4.0 (<2.0) mg/dL Ur Leukocyte Esterase Neg (Negative) Urine WBC (Auto) 1.0 (0.0-6.0) /HPF Urine RBC (Auto) 4.0 (0.0-6.0) /HPF Hyaline Casts 3 /LPF Urine Mucus Few /HPF Urine Opiates Screen Negative Urine Methadone Screen Negative Ur Barbiturates Screen Negative Ur Phencyclidine Scrn Negative Ur Amphetamines Screen Negative U Benzodiazepines Scrn Negative Urine Cocaine Screen Negative U Marijuana (THC) Screen Negative Drugs of Abuse Note Disclamer - EKG Data -: EKG Interpreted by Me EKG shows normal: sinus rhythm Rate: normal - Radiology Data Radiology results: report reviewed - Medical Decision Making Discussed results with patient Critical care attestation.: If time is entered above; I have spent that time in minutes in the direct care of this critically ill patient, excluding procedure time. ED Disposition Clinical Impression: Seizure-like activity Disposition: DC TO HOME OR SELFCARE Is pt being admited?: No Does the pt Need Aspirin: No Condition: Stable Instructions: Seizure, Adult Additional Instructions: return if worse Referrals: PRIMARY CARE, [Primary Care Provider] - 3-5 Days SRI SANTILLAN MD [Staff Physician] - 3-5 Days [facility] [Provider Group] - 3-5 Days [facility] [Provider Group] - 3-5 Days Time of Disposition: 14:08
[2021-06-17 12:11] LABS: Bilirubin,Urine NEG (Negative); Blood,Urine MOD (Negative); Color,Urine Yellow (Yellow); Hyaline Casts,Urine 3 /LPF; Mucus,Urine FEW /HPF
[2021-06-17 12:17] LABS: Amphetamine Screen,Urine Negative; Benzodiazepines Screen,Urine Negative; Cannabinoid Screen,Urine Negative; Cocaine Screen,Urine Negative; Methadone Screen,Urine Negative; Opiate Screen,Urine Negative
--- NOTE | 2021-06-17 12:27 | Cat Scan Report ---
CT BRAIN: 06/17/2021 INDICATION / CLINICAL INFORMATION: seizure/Head injury. COMPARISON: 04/24/2021 FINDINGS: BRAIN/INTRACRANIAL STRUCTURES: Unenhanced CT images of the brain demonstrate no evidence of acute abn ormality. Ventricles and sulci are prominent in size, consistent with pronounced diffuse cerebral atrophy. Clay Carman shubham white matter hypoattenuation is present. There is evidence of chronic left frontal cortical encep halomalacia. There is no CT evidence of acute large vessel territory ischemic injury, hemorrhage, or mass. There a re no abnormal extra-axial fluid collections. EXTRACRANIAL STRUCTURES: Unremarkable. IMPRESSION: No acute abnormality. Prominent diffuse cerebral atrophy for age. No significant change when compare d to 04/24/[address] scans at this location are performed using dose reduction to ALARA by means of automated expos ure control. Signer Name: Jorje Cross MD Signed: 06/17/2021 12:19 PM Workstation Name: [id number]
[2021-06-17 12:55] LABS: Alanine Aminotransferase 44 units/L (7-56); Albumin 4.7 g/dL (3.9-5); Blood Urea Nitrogen 5 mg/dL (9-20); Hemolysis Index 7
[2021-06-17 13:01] LABS: BUN/Creatinine Ratio 7
[2021-06-17 13:06] LABS: Basophils % (Auto) 0.4 % (0.0-1.8); Hematocrit 35.5 % (35.5-45.6); Hemoglobin 12.7 gm/dl (11.8-15.2); Lymphocytes # (Auto) 0.5 K/mm3 (1.2-5.4); Mean Corpuscular HGB Conc 36 % (32-34); Mean Corpuscular Volume 88 fl (84-94); Monocytes # (Auto) 0.3 K/mm3 (0.0-0.8); Monocytes % (Auto) 7.8 % (0.0-7.3); Platelet Count 128 K/mm3 (140-440); Red Blood Count 4.02 M/mm3 (3.65-5.03); Red Cell Distribution Width 13.6 % (13.2-15.2)
[2021-06-17] MEDS ORDERED: levETIRAcetam 500 MG TAB PO ONE (13:30)
== END 2021-06-17 15:20 | disposition home or self-care (01) ==
LOC: ED 10:25
DX: R56.9 Unspecified convulsions (principal); F17.200 Nicotine dependence, unspecified, uncomplicated; Z79.899 Other long term (current) drug therapy
CPT/HCPCS: 36415; 70450; 80053; 80307; 81001; 82962; 85025; 93005

== ENCOUNTER 2021-09-25 05:54 | Inpatient (IN) | payer SELFPAY ==
[2021-09-25] MEDS ORDERED: LORazepam 2 MG/ML VIAL ONE (06:18)
[2021-09-25] MEDS ORDERED: levETIRAcetam 1000 MG/NS 0.75% 1,000 MG/100 ML BAG IV ONE (06:22)
[2021-09-25] MEDS ORDERED: LORazepam 2 MG/ML VIAL IM ONE ×2 (06:25)
--- NOTE | 2021-09-25 06:50 | Emergency Department Report ---
ED Seizure HPI - General Chief Complaint: Seizure Stated Complaint: POSS SEIZURES Time Seen by Provider: 09/25/21 06:21 Source: EMS, old records reviewed Mode of arrival: Stretcher Limitations: Altered Mental Status - History of Present Illness Initial Comments: 55-year-old male with a past medical history of seizures presents to the hospital with seizures. Patient was [place] un[place] [address] [place] [address]. Police Department report patient was foaming at the mouth. Upon EMS arrival patient was confused. Patient's mental status gradually improved and by time of ED arrival patient was able to answer some questions including his name. Denied drinking the bottle of fireball alcohol that was found beside him at the scene. Patient did not recall being transported to the hospital or why he was here. During registration patient had a witnessed seizure episode and is postictal at time of my evaluation. As per medical record review patient has had a similar presentation in the past and was noncompliant with seizure medication at that time. - Related Data Previous Rx's Medication Instructions Recorded Last Taken Type levETIRAcetam [Keppra TAB] 500 mg PO BID #60 tablet 06/17/21 Unknown Rx Allergies Allergy/AdvReac Type Severity Reaction Status Date / Time No Known Allergies Allergy Unverified 06/17/21 10:52 ED Review of Systems ROS: Stated complaint: POSS SEIZURES Other details as noted in HPI ED Past Medical Hx - Past Medical History Previous Medical History?: Yes Hx Seizures: Yes Additional medical history: unknown - Surgical History Additional Surgical History: unknown - Social History Smoking Status: Unknown if ever smoked Substance Use Type: Alcohol - Medications Home Medications: Home Medications Medication Instructions Recorded Confirmed Last Taken Type levETIRAcetam [Keppra TAB] 500 mg PO BID #60 tablet 06/17/21 Unknown Rx ED Physical Exam - General Limitations: Altered Mental Status - Other Other exam information: General: Disheveled with soiled clothes Head: Atraumatic Eyes: Left conjunctival redness, pupils equal reactive to light ENT: Moist mucous membranes Neck: Normal appearance Chest: Clear to auscultation bilaterally CV: Regular rate and rhythm Abdomen: Soft, normal bowel sounds, nontender, nondistended, no rebound or guarding Extremity: Normal inspection Neuro: Postictal, no withdrawal to pain no spontaneous movement Skin: No rash ED Course Vital Signs 11/14/21 11/14/21 11/14/21 06:11 07:19 07:29 Temperature 98.2 F Pulse Rate 108 H 110 H Respiratory 20 16 Rate Blood Pressure 172/110 126/82 [Left] O2 Sat by Pulse 99 98 97 Oximetry - Reevaluation(s) Reevaluation #1: 09/25/21 09:21 Patient is currently alert and responsive with improved mental status. 09/25/21 09:27 Current line is poorly functioning and patient has not received much IV fluids. Nurse instructed to place an alternative IV line ED Medical Decision Making - Lab Data Result diagrams: 09/25/21 06:46 09/25/21 08:10 Lab Results 09/25/21 09/25/21 09/25/21 Range/Units 06:29 06:46 06:46 WBC 6.6 (4.5-11.0) K/mm3 RBC 4.58 (3.65-5.03) M/mm3 Hgb 14.3 (11.8-15.2) gm/dl Hct 41.9 (35.5-45.6) % MCV 92 (84-94) fl MCH 31 (28-32) pg MCHC 34 (32-34) % RDW 13.0 L (13.2-15.2) % Plt Count 170 (140-440) K/mm3 Lymph % (Auto) 43.6 H (13.4-35.0) % [place] % (Auto) 9.1 H (0.0-7.3) % Eos % (Auto) 3.9 (0.0-4.3) % Baso % (Auto) 0.9 (0.0-1.8) % Lymph # (Auto) 2.8 (1.2-5.4) K/mm3 [place] # (Auto) 0.6 (0.0-0.8) K/mm3 Eos # (Auto) 0.3 (0.0-0.4) K/mm3 Baso # (Auto) 0.1 (0.0-0.1) K/mm3 Add Manual Diff Complete Seg Neutrophils % 42.5 (40.0-70.0) % Nucleated RBC % Not Reportable Seg Neutrophils # 2.8 (1.8-7.7) K/mm3 WBC Morphology Not Reportable Hypersegmented Neuts Not Reportable Hyposegmented Neuts Not Reportable Hypogranular Neuts Not Reportable Smudge Cells Not Reportable Toxic Granulation Not Reportable Toxic Vacuolation Not Reportable Dohle Bodies Not Reportable Pelger-Huet Anomaly Not Reportable Jez Rods Not Reportable Platelet Estimate Not Reportable Clumped Platelets Not Reportable Plt Clumps, EDTA Not Reportable Large Platelets Not Reportable Giant Platelets Not Reportable Platelet Satelliting Not Reportable Plt Morphology Comment Not Reportable RBC Morphology Not Reportable Dimorphic RBCs Not Reportable Polychromasia Not Reportable Hypochromasia Not Reportable Poikilocytosis Not Reportable Anisocytosis Not Reportable Microcytosis Not Reportable Macrocytosis Not Reportable Spherocytes Not Reportable Pappenheimer Bodies Not Reportable Sickle Cells Not Reportable Target Cells Not Reportable Tear Drop Cells Not Reportable Ovalocytes Not Reportable Helmet Cells Not Reportable Corral-Lilbourn Bodies Not Reportable Browder Rings Not Reportable Central Cells Not Reportable Bite Cells Not Reportable Crenated Cell Not Reportable Elliptocytes Not Reportable Acanthocytes (Spur) Not Reportable Rouleaux Not Reportable Hemoglobin C Crystals Not Reportable Schistocytes Not Reportable Malaria parasites Not Reportable Ike Bodies Not Reportable Hem Pathologist Commnt No ABG pH (7.350-7.450) pH Units ABG pCO2 mm Hg ABG pO2 (80.0-90.0) mm Hg ABG HCO3 (20.0-26.0) mmol/L ABG O2 Saturation (95.0-99.0) % ABG O2 Content (0.0-44) ABG Base Excess (-2.0-3.0) mmol/L ABG Hemoglobin (14.0-18.0) gm/dl ABG Carboxyhemoglobin (0.0-5.0) % ABG Methemoglobin (0.0-1.5) % VBG pH (7.320-7.420) Oxyhemoglobin (95.0-99.0) % FiO2 % Sodium TNR Potassium TNR Chloride TNR Carbon Dioxide TNR Anion Gap TNR BUN TNR Creatinine TNR Estimated GFR TNR BUN/Creatinine Ratio TNR Glucose TNR POC Glucose 151 H (70-105) mg/dL Calcium TNR Magnesium TNR Total Bilirubin TNR AST TNR ALT TNR Alkaline Phosphatase TNR Total Protein TNR Albumin TNR Albumin/Globulin Ratio TNR Plasma/Serum Alcohol (0-0.07) % 09/25/21 09/25/21 09/25/21 Range/Units 06:46 08:10 08:15 WBC (4.5-11.0) K/mm3 RBC (3.65-5.03) M/mm3 Hgb (11.8-15.2) gm/dl Hct (35.5-45.6) % MCV (84-94) fl MCH (28-32) pg MCHC (32-34) % RDW (13.2-15.2) % Plt Count (140-440) K/mm3 Lymph % (Auto) (13.4-35.0) % [place] % (Auto) (0.0-7.3) % Eos % (Auto) (0.0-4.3) % Baso % (Auto) (0.0-1.8) % Lymph # (Auto) (1.2-5.4) K/mm3 [place] # (Auto) (0.0-0.8) K/mm3 Eos # (Auto) (0.0-0.4) K/mm3 Baso # (Auto) (0.0-0.1) K/mm3 Add Manual Diff Seg Neutrophils % (40.0-70.0) % Nucleated RBC % Seg Neutrophils # (1.8-7.7) K/mm3 WBC Morphology Hypersegmented Neuts Hyposegmented Neuts Hypogranular Neuts Smudge Cells Toxic Granulation Toxic Vacuolation Dohle Bodies Pelger-Huet Anomaly Jez Rods Platelet Estimate Clumped Platelets Plt Clumps, EDTA Large Platelets Giant Platelets Platelet Satelliting Plt Morphology Comment RBC Morphology Dimorphic RBCs Polychromasia Hypochromasia Poikilocytosis Anisocytosis Microcytosis Macrocytosis Spherocytes Pappenheimer Bodies Sickle Cells Target Cells Tear Drop Cells Ovalocytes Helmet Cells Corral-Lilbourn Bodies Browder Rings Zafar Cells Bite Cells Crenated Cell Elliptocytes Acanthocytes (Spur) Rouleaux Hemoglobin C Crystals Schistocytes Malaria parasites Ike Bodies Hem Pathologist Commnt ABG pH (7.350-7.450) pH Units ABG pCO2 mm Hg ABG pO2 (80.0-90.0) mm Hg ABG HCO3 (20.0-26.0) mmol/L ABG O2 Saturation (95.0-99.0) % ABG O2 Content (0.0-44) ABG Base Excess (-2.0-3.0) mmol/L ABG Hemoglobin (14.0-18.0) gm/dl ABG Carboxyhemoglobin (0.0-5.0) % ABG Methemoglobin (0.0-1.5) % VBG pH 7.350 (7.320-7.420) Oxyhemoglobin (95.0-99.0) % FiO2 % Sodium 120 L Potassium 4.2 Chloride 80.1 L Carbon Dioxide 15 L Anion Gap 29 BUN 5 L Creatinine 0.7 L Estimated GFR > 60 BUN/Creatinine Ratio 7 Glucose 106 H POC Glucose (70-105) mg/dL Calcium 9.6 Magnesium 1.60 L Total Bilirubin 0.80 AST 78 H ALT 48 Alkaline Phosphatase 69 Total Protein 9.1 H Albumin 4.5 Albumin/Globulin Ratio 1.0 Plasma/Serum Alcohol 0.05 (0-0.07) % 11/14/21 Range/Units 09:13 WBC (4.5-11.0) K/mm3 RBC (3.65-5.03) M/mm3 Hgb (11.8-15.2) gm/dl Hct (35.5-45.6) % MCV (84-94) fl MCH (28-32) pg MCHC (32-34) % RDW (13.2-15.2) % Plt Count (140-440) K/mm3 Lymph % (Auto) (13.4-35.0) % [place] % (Auto) (0.0-7.3) % Eos % (Auto) (0.0-4.3) % Baso % (Auto) (0.0-1.8) % Lymph # (Auto) (1.2-5.4) K/mm3 [place] # (Auto) (0.0-0.8) K/mm3 Eos # (Auto) (0.0-0.4) K/mm3 Baso # (Auto) (0.0-0.1) K/mm3 Add Manual Diff Seg Neutrophils % (40.0-70.0) % Nucleated RBC % Seg Neutrophils # (1.8-7.7) K/mm3 WBC Morphology Hypersegmented Neuts Hyposegmented Neuts Hypogranular Neuts Smudge Cells Toxic Granulation Toxic Vacuolation Dohle Bodies Pelger-Huet Anomaly Jez Rods Platelet Estimate Clumped Platelets Plt Clumps, EDTA Large Platelets Giant Platelets Platelet Satelliting Plt Morphology Comment RBC Morphology Dimorphic RBCs Polychromasia Hypochromasia Poikilocytosis Anisocytosis Microcytosis Macrocytosis Spherocytes Pappenheimer Bodies Sickle Cells Target Cells Tear Drop Cells Ovalocytes Helmet Cells Corral-Lilbourn Bodies Browder Rings Central Cells Bite Cells Crenated Cell Elliptocytes Acanthocytes (Spur) Rouleaux Hemoglobin C Crystals Schistocytes Malaria parasites Ike Bodies Hem Pathologist Commnt ABG pH 7.421 (7.350-7.450) pH Units ABG pCO2 32.7 mm Hg ABG pO2 80.7 (80.0-90.0) mm Hg ABG HCO3 20.8 (20.0-26.0) mmol/L ABG O2 Saturation 96.2 (95.0-99.0) % ABG O2 Content 18.1 (0.0-44) ABG Base Excess -2.8 L (-2.0-3.0) mmol/L ABG Hemoglobin 13.7 L (14.0-18.0) gm/dl ABG Carboxyhemoglobin 1.8 (0.0-5.0) % ABG Methemoglobin 0.6 (0.0-1.5) % VBG pH (7.320-7.420) Oxyhemoglobin 93.9 L (95.0-99.0) % FiO2 21 % Sodium Potassium Chloride Carbon Dioxide Anion Gap BUN Creatinine Estimated GFR BUN/Creatinine Ratio Glucose POC Glucose (70-105) mg/dL Calcium Magnesium Total Bilirubin AST ALT Alkaline Phosphatase Total Protein Albumin Albumin/Globulin Ratio Plasma/Serum Alcohol (0-0.07) % - EKG Data -: EKG Interpreted by Nd EKG shows normal: sinus rhythm, intervals (QTC 451), QRS complexes (QRS duration 100), ST-T waves (No STEMI) Rate: tachycardia - EKG Data When compared to previous EKG there are: no significant change - Radiology Data Radiology results: report reviewed CT cervical spine wo con, CT head/brain wo con INDICATION: Seizure. TECHNIQUE: CT head and cervical spine without contrast. All CT scans at this location are performed using CT dose reduction for ALARA by means of automated exposure control. COMPARISON: 06/17/2021 FINDINGS: HEAD: Intracranial: No acute intracranial hemorrhage or evidence of recent infarct. Chronic small vessel ischemic changes with encephalomalacia of the left frontal lobe, unchanged. There is age-related cerebral atrophy. Sinuses: Paranasal sinuses and mastoid air cells are essentially clear. Orbits: Globes are intact Calvarium: No acute fracture. CERVICAL: Alignment: Mild degenerative anterolisthesis of C4 on C5 and retrolisthesis of C5 on C6. No acute subluxation. Vertebrae: No fracture. Vertebral body heights are preserved. C1 and C2 are congruent. Atlantooccipital joint is maintained. Spondylolysis: Advanced multilevel cervical spondylosis, greatest at C5-6 and C6-7. There is at least moderate canal narrowing at C5-6. Soft tissues: No prevertebral soft tissue thickening. Additional findings: No significant additional findings. IMPRESSION: 1. No acute intracranial abnormality. 2. Advanced multilevel cervical spondylosis. No acute cervical spine fracture. - Medical Decision Making 55-year male with a history of seizures and questionable alcohol abuse presents to the hospital after being found unresponsive in the street. He is likely postictal since patient had gradual improvement in mental status during EMS transport and had another witnessed seizure here after ED arrival. Patient received Ativan 2 mg IM followed by Keppra 1 g IV. At time of disposition mental status has improved and patient is easily arousable and able to answer questions. CT head and cervical spine do not reveal acute abnormality. Labs reveal significant electrolyte abnormalities including significant hyponatremia as well as mild hypomagnesemia and an anion gap. As per medical record patient appears to have chronic hyponatremia this might possibly be due to alcohol if patient is a heavy beer drinker. Patient treated with banana bag and D5 half- normal NS. Patient will require admission to the hospital service for further evaluation and treat. Patient placed on CIWA protocol UA pending at disposition Critical Care Time: Yes Critical care time in (mins) excluding proc time.: 35 Critical care attestation.: If time is entered above; I have spent that time in minutes in the direct care of this critically ill patient, excluding procedure time. ED Disposition Clinical Impression: Seizures, Hyponatremia, Alcohol abuse Disposition: ADMITTED INPATIENT Is pt being admited?: Yes Condition: Stable Referrals: PRIMARY CARE, [Primary Care Provider] - 3-5 Days Time of Disposition: 09:26 (Dr Petersen/case dw dr mares)
[2021-09-25 07:28] LABS: Hematocrit 41.9 % (35.5-45.6); Hemoglobin 14.3 gm/dl (11.8-15.2); Mean Corpuscular HGB Conc 34 % (32-34); Mean Corpuscular Volume 92 fl (84-94); Platelet Count 170 K/mm3 (140-440); Red Blood Count 4.58 M/mm3 (3.65-5.03)
[2021-09-25 07:54] LABS: Hemolysis Index 402
[2021-09-25 07:59] LABS: BUN/Creatinine Ratio TNR; Blood Urea Nitrogen TNR mg/dL (9-20)
[2021-09-25 08:00] LABS: Alanine Aminotransferase TNR units/L (7-56); Calcium TNR mg/dL (8.4-10.2)
[2021-09-25 08:01] LABS: Albumin TNR g/dL (3.9-5)
[2021-09-25 08:10] LABS: Basophils # (Auto) 0.1 K/mm3 (0.0-0.1); Basophils % (Auto) 0.9 % (0.0-1.8); Eosinophils # (Auto) 0.3 K/mm3 (0.0-0.4); Eosinophils % (Auto) 3.9 % (0.0-4.3); Lymphocytes # (Auto) 2.8 K/mm3 (1.2-5.4); Lymphocytes % (Auto) 43.6 % (13.4-35.0); Monocytes # (Auto) 0.6 K/mm3 (0.0-0.8); Monocytes % (Auto) 9.1 % (0.0-7.3)
[2021-09-25 08:48] LABS: Alanine Aminotransferase 48 units/L (7-56); Albumin 4.5 g/dL (3.9-5); Blood Urea Nitrogen 5 mg/dL (9-20); Calcium 9.6 mg/dL (8.4-10.2); Hemolysis Index 6
[2021-09-25 08:49] LABS: BUN/Creatinine Ratio 7
[2021-09-25] MEDS ORDERED: THIAMINE 100 MG, FOLIC ACID 1 MG, MULTIPLE VITAMIN INJ, ADULT 10 ML in SODIUM CHLORIDE ... IV ONE (09:00)
--- NOTE | 2021-09-25 09:03 | Cat Scan Report ---
CT cervical spine wo con, CT head/brain wo con INDICATION: Seizure. TECHNIQUE: CT head and cervical spine without contrast. All CT scans at this location are performed u sing CT dose reduction for AUGUSTORA by means of automated exposure control. COMPARISON: 06/17/2021 FINDINGS: HEAD: Intracranial: No acute intracranial hemorrhage or evidence of recent infarct. Chronic small vessel is chemic changes with encephalomalacia of the left frontal lobe, unchanged. There is age-related cerebr al atrophy. Sinuses: Paranasal sinuses and mastoid air cells are essentially clear. Orbits: Globes are intact Calvarium: No acute fracture. CERVICAL: Alignment: Mild degenerative anterolisthesis of C4 on C5 and retrolisthesis of C5 on C6. No acute sub luxation. Vertebrae: No fracture. Vertebral body heights are preserved. C1 and C2 are congruent. Atlantooccipi kate joint is maintained. Spondylolysis: Advanced multilevel cervical spondylosis, greatest at C5-6 and C6-7. There is at least moderate canal narrowing at C5-6. Soft tissues: No prevertebral soft tissue thickening. Additional findings: No significant additional findings. IMPRESSION: 1. No acute intracranial abnormality. 2. Advanced multilevel cervical spondylosis. No acute cervical spine fracture. Signer Name: Joseph Gillette MD Signed: 09/25/2021 8:59 AM Workstation Name: [id number]
[2021-09-25] MEDS ORDERED: MAGNESIUM SULFATE 2 GM/50 ML BAG IV ONE (09:15)
[2021-09-25] MEDS ORDERED: LORazepam 2 MG/ML VIAL IV PRN ×2 (09:22)
[2021-09-25 09:24] LABS: ABG Base Excess -2.8 mmol/L (-2.0-3.0); ABG HCO3 20.8 mmol/L (20.0-26.0); ABG Methemoglobin 0.6 % (0.0-1.5); ABG Oxygen Saturation 96.2 % (95.0-99.0); ABG PCO2 32.7 mm Hg; ABG PH 7.421 pH Units (7.350-7.450); ABG PO2 80.7 mm Hg (80.0-90.0)
--- NOTE | 2021-09-25 09:35 | XRay Report ---
XR chest 1V ap INDICATION / CLINICAL INFORMATION: seizure, unresponsive. COMPARISON: 10/04/2018 FINDINGS: SUPPORT DEVICES: None. HEART /PULMONARY VASCULATURE: No significant abnormality. LUNGS / PLEURA: Mild diffuse interstitial opacities, likely reflecting edema. No focal consolidation. No pneumothorax. ADDITIONAL FINDINGS: No significant additional findings. IMPRESSION: Mild interstitial edema. Signer Name: Joseph Gillette MD Signed: 09/25/2021 9:30 AM Workstation Name: [id number]
[2021-09-25] MEDS ORDERED: D5W/0.9% NACL 1,000 ML IV SCH (10:00)
--- NOTE | 2021-09-25 10:17 | History and Physical Report ---
History of Present Illness Date of examination: 09/25/21 Chief complaint: found down on highway History of present illness: 55-year-old male with history of seizure disorder who presented after being found down on the highway. Upon arrival patient had a witnessed seizure and was treated medically. Sodium was low at 120. Patient was also tachycardic. He was admitted to medicine for further care. At time of interview patient is alert and oriented x3. He does not recall any events surrounding him being found down. He denies chest pain, shortness of breath, palpitations, lightheadedness, dizziness prior to and after. He was taking seizure medications in the past but stopped due to lack of money. He also drinks 12 or 16 ounces beers daily along with at least 2 shots of liquor. Further probing into alcohol use was unsuccessful. Patient did not want to quantify how much he drinks in says he "does not drink like that". Past History Past Medical History: other (seizure) Social history: smoking (1 pack of cigarettes weekly), alcohol abuse (drinks 12- 16 oz beers and 2 shots of liquor daily) Medications and Allergies Allergies Allergy/AdvReac Type Severity Reaction Status Date / Time No Known Allergies Allergy Unverified 06/17/21 10:52 Home Medications Medication Instructions Recorded Confirmed Last Taken Type levETIRAcetam [Keppra TAB] 500 mg PO BID #60 tablet 06/17/21 Unknown Rx Active Meds: Active Medications Acetaminophen (Acetaminophen 325 Mg Tab) 650 mg PO Q4H PRN PRN Reason: Pain MILD(1-3)/Fever >100.5/MILLER Dextrose/Sodium Chloride (D5ns) 1,000 mls @ 150 mls/hr IV DIRECT TOMMY Lorazepam (Lorazepam 2 Mg/Ml Vial) 2 mg IV Q1HR PRN PRN Reason: CIWA-Ar 8-15 Lorazepam (Lorazepam 2 Mg/Ml Vial) 4 mg IV Q1HR PRN PRN Reason: CIWA-Ar 16-25 Morphine Sulfate (Morphine 4 Mg/1 Ml Inj) 4 mg IV Q4H PRN PRN Reason: Pain , Severe (7-10) Ondansetron HCl (Ondansetron 4 Mg/2 Ml Inj) 4 mg IV Q8H PRN PRN Reason: Nausea And Vomiting Oxycodone/Acetaminophen (Oxycodone /Acetaminophen 5-325mg Tab) 1 tab PO Q6H PRN PRN Reason: Pain, Moderate (4-6) Sodium Chloride (Sodium Chloride 0.9% 10 Ml Flush Syringe) 10 ml IV BID TOMMY Sodium Chloride (Sodium Chloride 0.9% 10 Ml Flush Syringe) 10 ml IV PRN PRN PRN Reason: LINE FLUSH Review of Systems All systems: negative Constitutional: poor appetite Exam - Physical Exam Narrative exam: GENERAL: Thin male. Lying in bed, no acute distress. HEENT: Chronic facial rash. CHEST/LUNGS: CTAB on room air HEART/CARDIOVASCULAR: Tachycardic. No murmur, rubs or gallops appreciated. ABDOMEN: +BS. NT/ND. NEURO: No focal motor deficit. Follows all commands. MUSCULOSKELETAL: No joint effusion EXTREMITIES: No cyanosis, clubbing or edema. PSYCH: Cooperative. - Constitutional Vitals: Temp Pulse Resp BP Pulse Ox 98.2 F 110 H 16 126/82 97 09/25/21 06:11 09/25/21 07:19 09/25/21 07:19 09/25/21 07:19 09/25/21 07:29 Results - Labs CBC & Chem 7: 09/25/21 06:46 09/25/21 08:10 Labs: Laboratory Last Values WBC 6.6 K/mm3 (4.5-11.0) 09/25/21 06:46 RBC 4.58 M/mm3 (3.65-5.03) 09/25/21 06:46 Hgb 14.3 gm/dl (11.8-15.2) 09/25/21 06:46 Hct 41.9 % (35.5-45.6) 09/25/21 06:46 MCV 92 fl (84-94) 09/25/21 06:46 MCH 31 pg (28-32) 09/25/21 06:46 MCHC 34 % (32-34) 09/25/21 06:46 RDW 13.0 % (13.2-15.2) L 09/25/21 06:46 Plt Count 170 K/mm3 (140-440) 09/25/21 06:46 Lymph % (Auto) 43.6 % (13.4-35.0) H 09/25/21 06:46 [place] % (Auto) 9.1 % (0.0-7.3) H 09/25/21 06:46 Eos % (Auto) 3.9 % (0.0-4.3) 09/25/21 06:46 Baso % (Auto) 0.9 % (0.0-1.8) 09/25/21 06:46 Lymph # (Auto) 2.8 K/mm3 (1.2-5.4) 09/25/21 06:46 [place] # (Auto) 0.6 K/mm3 (0.0-0.8) 09/25/21 06:46 Eos # (Auto) 0.3 K/mm3 (0.0-0.4) 09/25/21 06:46 Baso # (Auto) 0.1 K/mm3 (0.0-0.1) 09/25/21 06:46 Add Manual Diff Complete 09/25/21 06:46 Seg Neutrophils % 42.5 % (40.0-70.0) 09/25/21 06:46 Nucleated RBC % Not Reportable 09/25/21 06:46 Seg Neutrophils # 2.8 K/mm3 (1.8-7.7) 09/25/21 06:46 WBC Morphology Not Reportable 09/25/21 06:46 Hypersegmented Neuts Not Reportable 09/25/21 06:46 Hyposegmented Neuts Not Reportable 09/25/21 06:46 Hypogranular Neuts Not Reportable 09/25/21 06:46 Smudge Cells Not Reportable 09/25/21 06:46 Toxic Granulation Not Reportable 09/25/21 06:46 Toxic Vacuolation Not Reportable 09/25/21 06:46 Dohle Bodies Not Reportable 09/25/21 06:46 Pelger-Huet Anomaly Not Reportable 09/25/21 06:46 Jez Rods Not Reportable 09/25/21 06:46 Platelet Estimate Not Reportable 09/25/21 06:46 Clumped Platelets Not Reportable 09/25/21 06:46 Plt Clumps, EDTA Not Reportable 09/25/21 06:46 Large Platelets Not Reportable 09/25/21 06:46 Giant Platelets Not Reportable 09/25/21 06:46 Platelet Satelliting Not Reportable 09/25/21 06:46 Plt Morphology Comment Not Reportable 09/25/21 06:46 RBC Morphology Not Reportable 09/25/21 06:46 Dimorphic RBCs Not Reportable 09/25/21 06:46 Polychromasia Not Reportable 09/25/21 06:46 Hypochromasia Not Reportable 09/25/21 06:46 Poikilocytosis Not Reportable 09/25/21 06:46 Anisocytosis Not Reportable 09/25/21 06:46 Microcytosis Not Reportable 09/25/21 06:46 Macrocytosis Not Reportable 09/25/21 06:46 Spherocytes Not Reportable 09/25/21 06:46 Pappenheimer Bodies Not Reportable 09/25/21 06:46 Sickle Cells Not Reportable 09/25/21 06:46 Target Cells Not Reportable 09/25/21 06:46 Tear Drop Cells Not Reportable 09/25/21 06:46 Ovalocytes Not Reportable 09/25/21 06:46 Helmet Cells Not Reportable 09/25/21 06:46 [place] Bodies Not Reportable 09/25/21 06:46 [place] Rings Not Reportable 09/25/21 06:46 [place] Cells Not Reportable 09/25/21 06:46 Bite Cells Not Reportable 09/25/21 06:46 Crenated Cell Not Reportable 09/25/21 06:46 Elliptocytes Not Reportable 09/25/21 06:46 Acanthocytes (Spur) Not Reportable 09/25/21 06:46 Rouleaux Not Reportable 09/25/21 06:46 Hemoglobin C Crystals Not Reportable 09/25/21 06:46 Schistocytes Not Reportable 09/25/21 06:46 Malaria parasites Not Reportable 09/25/21 06:46 Ike Bodies Not Reportable 09/25/21 06:46 Hem Pathologist Commnt No 09/25/21 06:46 ABG pH 7.421 pH Units (7.350-7.450) 09/25/21 09:13 ABG pCO2 32.7 mm Hg 09/25/21 09:13 ABG pO2 80.7 mm Hg (80.0-90.0) 09/25/21 09:13 ABG HCO3 20.8 mmol/L (20.0-26.0) 09/25/21 09:13 ABG O2 Saturation 96.2 % (95.0-99.0) 09/25/21 09:13 ABG O2 Content 18.1 (0.0-44) 09/25/21 09:13 ABG Base Excess -2.8 mmol/L (-2.0-3.0) L 09/25/21 09:13 ABG Hemoglobin 13.7 gm/dl (14.0-18.0) L 09/25/21 09:13 ABG Carboxyhemoglobin 1.8 % (0.0-5.0) 09/25/21 09:13 ABG Methemoglobin 0.6 % (0.0-1.5) 09/25/21 09:13 VBG pH 7.350 (7.320-7.420) 09/25/21 08:15 Oxyhemoglobin 93.9 % (95.0-99.0) L 09/25/21 09:13 FiO2 21 % 09/25/21 09:13 Sodium 120 mmol/L (137-145) L 09/25/21 08:10 Potassium 4.2 mmol/L (3.6-5.0) 09/25/21 08:10 Chloride 80.1 mmol/L (98-107) L 09/25/21 08:10 Carbon Dioxide 15 mmol/L (22-30) L 09/25/21 08:10 Anion Gap 29 mmol/L 09/25/21 08:10 BUN 5 mg/dL (9-20) L 09/25/21 08:10 Creatinine 0.7 mg/dL (0.8-1.3) L 09/25/21 08:10 Estimated GFR > 60 ml/min 09/25/21 08:10 BUN/Creatinine Ratio 7 % 09/25/21 08:10 Glucose 106 mg/dL (75-100) H 09/25/21 08:10 POC Glucose 151 mg/dL (70-105) H 09/25/21 06:29 Calcium 9.6 mg/dL (8.4-10.2) 09/25/21 08:10 Magnesium 1.60 mg/dL (1.7-2.3) L 09/25/21 08:10 Total Bilirubin 0.80 mg/dL (0.1-1.2) 09/25/21 08:10 AST 78 units/L (5-40) H 09/25/21 08:10 ALT 48 units/L (7-56) 09/25/21 08:10 Alkaline Phosphatase 69 units/L (35-129) 09/25/21 08:10 Total Protein 9.1 g/dL (6.3-8.2) H 09/25/21 08:10 Albumin 4.5 g/dL (3.9-5) 09/25/21 08:10 Albumin/Globulin Ratio 1.0 % 09/25/21 08:10 Plasma/Serum Alcohol 0.05 % (0-0.07) 09/25/21 06:46 - Imaging and Cardiology CT Scan - head: report reviewed, image reviewed Assessment and Plan Assessment and plan: Patient is a 55-year-old male history of seizure disorder noncompliant with medication who was found down on the side of the road and was brought to the ED. Observed seizures while in the ED. Also found to have a sodium of 120. Admitted to medicine for further care. Currently alert and oriented x3. #Syncope -Patient found down on [place], has no recollection of events -CT head negative; UDS negative -Echocardiogram ordered -EKG sinus tachycardia; telemetry -could be secondary to unwitnessed seizure versus arrhythmia #Seizure disorder -hx of seizure disorder -Was taking Keppra 500 mg twice daily in the past; will restart while inpatient -Patient stopped taking medications due to inability to pay for them -Counseled on the importance of continuing antiepileptic medications -will consult Neurology #Hyponatremia -Na 120 -Specific gravity low -Urine sodium, osms ordered -We will give 1 L bolus of hypertonic saline -Every 6 hours sodium checks -Nephrology consulted, recs appreciated -Could be secondary to excessive alcohol intake #Hypomagnesemia -received magnesium supplementation in ED -will replete and monitor #Alcohol dependence -Patient reports drinking 1-2 beers daily along with multiple shots of liquor -[facility] protocol while inpatient -Thiamine and folate supplementation -Counseled on detrimental effects of alcohol dependence including lowering of seizure threshold. Patient voiced understanding, but is very defensive about drinking habits. Time+15 minutes #Tobacco dependence -Patient smokes 1 pack of cigarettes per week -Counseled about tobacco cessation, patient not interested at this time. Advance Directives: No VTE prophylaxis?: Chemical, Mechanical Plan of care discussed with patient/family: Yes
[2021-09-25] MEDS ORDERED: ACETAMINOPHEN 325 MG TAB PO PRN (10:30)
[2021-09-25] MEDS ORDERED: ONDANSETRON 4 MG/2 ML INJ IV PRN (11:00)
[2021-09-25] MEDS ORDERED: oxyCODONE /ACETAMINOPHEN 5-325MG TAB PO PRN (11:00)
[2021-09-25] MEDS ORDERED: MORPHINE 4 MG/1 ML INJ IV PRN (11:00)
[2021-09-25 12:32] LABS: Bilirubin,Urine NEG (Negative); Blood,Urine SM (Negative); Color,Urine Straw (Yellow); Protein,Urine <15 mg/dL mg/dL (Negative); RBC,Urine < 1.0 /HPF (0.0-6.0); Urobilinogen,Urine < 2.0 mg/dL (<2.0); WBC,Urine < 1.0 /HPF (0.0-6.0)
[2021-09-25 12:42] LABS: Amphetamine Screen,Urine Negative; Benzodiazepines Screen,Urine Negative; Cannabinoid Screen,Urine Negative; Cocaine Screen,Urine Negative; Methadone Screen,Urine Negative; Opiate Screen,Urine Negative
[2021-09-25] MEDS ORDERED: SODIUM CHLORIDE 3% 100 ML IV ONE (14:47)
[2021-09-25] MEDS: FOLIC ACID 1 MG in SODIUM CHLORIDE 0.9% 50 ML IV SCH (16:18)
--- NOTE | 2021-09-25 18:12 | Consultation ---
History of Present Illness - Reason for Consult Consult date: 09/25/21 hyponatremia - History of Present Illness This is a 55-year-old man with history of seizure disorder and alcohol abuse who [place] and was brought in to the emergency department for further workup. He had a witnessed seizure in the emergency department. Lab work obtained was notable for severe hyponatremia and nephrology was consulted for further management. During the time of the visit patient was alert and oriented 3 and was able to respond appropriately to the questions. He notes drinking alcohol daily exceeding the recommended limits. Past History Past Medical History: other (seizure) Social history: smoking (1 pack of cigarettes weekly), alcohol abuse (drinks 12- 16 oz beers and 2 shots of liquor daily) Medications and Allergies Allergies Allergy/AdvReac Type Severity Reaction Status Date / Time No Known Allergies Allergy Unverified 06/17/21 10:52 Home Medications Medication Instructions Recorded Confirmed Last Taken Type levETIRAcetam [Keppra TAB] 500 mg PO BID #60 tablet 06/17/21 Unknown Rx Active Meds: Active Medications Acetaminophen (Acetaminophen 325 Mg Tab) 650 mg PO Q4H PRN PRN Reason: Pain MILD(1-3)/Fever >100.5/MILLER Levetiracetam 500 mg/ Dextrose 105 mls @ 400 mls/hr IV Q12HR TOMMY Thiamine HCl 100 mg/ Sodium (Chloride) 51 mls @ 100 mls/hr IV QDAY TOMMY Folic Acid 1 mg/ Sodium (Chloride) 50.2 mls @ 200.8 mls/hr IV QDAY [facility] Last Infusion: 09/25/21 16:35 Dose: Infused Documented by: Lorazepam (Lorazepam 2 Mg/Ml Vial) 2 mg IV Q1HR PRN PRN Reason: CIWA-Ar 8-15 Lorazepam (Lorazepam 2 Mg/Ml Vial) 4 mg IV Q1HR PRN PRN Reason: CIWA-Ar 16-25 Morphine Sulfate (Morphine 4 Mg/1 Ml Inj) 4 mg IV Q4H PRN PRN Reason: Pain , Severe (7-10) Ondansetron HCl (Ondansetron 4 Mg/2 Ml Inj) 4 mg IV Q8H PRN PRN Reason: Nausea And Vomiting Oxycodone/Acetaminophen (Oxycodone /Acetaminophen 5-325mg Tab) 1 tab PO Q6H PRN PRN Reason: Pain, Moderate (4-6) Sodium Chloride (Sodium Chloride 0.9% 10 Ml Flush Syringe) 10 ml IV BID TOMMY Last Admin: 09/25/21 10:40 Dose: 10 ml Documented by: Sodium Chloride (Sodium Chloride 0.9% 10 Ml Flush Syringe) 10 ml IV PRN PRN PRN Reason: LINE FLUSH Review of Systems Constitutional: no fever, no chills Ears, nose, mouth and throat: no nasal congestion, no nasal discharge Cardiovascular: no chest pain, no orthopnea Gastrointestinal: no nausea, no vomiting, no diarrhea Genitourinary Male: no dysuria, no hematuria Musculoskeletal: no muscle weakness, no muscle cramps Integumentary: no rash, no pruritis Neurological: seizures, no tremors Psychiatric: no anxiety, no paranoia Endocrine: no polydipsia, no polyuria Hematologic/Lymphatic: no easy bruising, no easy bleeding Exam - Vital Signs Vital signs: Vital Signs Temp Pulse Resp BP Pulse Ox 98.2 F 108 H 20 172/110 99 09/25/21 06:11 09/25/21 06:11 09/25/21 06:11 09/25/21 06:11 09/25/21 06:11 Results - Lab Results 09/25/21 06:46 09/25/21 18:55 Most recent lab results ABG pH 7.421 pH Units (7.350-7.450) 09/25/21 09:13 ABG pCO2 32.7 mm Hg 09/25/21 09:13 ABG pO2 80.7 mm Hg (80.0-90.0) 09/25/21 09:13 ABG HCO3 20.8 mmol/L (20.0-26.0) 09/25/21 09:13 ABG O2 Saturation 96.2 % (95.0-99.0) 09/25/21 09:13 Calcium 9.6 mg/dL (8.4-10.2) 09/25/21 08:10 Magnesium 1.60 mg/dL (1.7-2.3) L 09/25/21 08:10 Urine Sodium 29 mmol/L 09/25/21 12:10 Assessment and Plan Severe hyponatremia, duration unclear History of seizure disorder Alcohol dependence Ordered 3% 100 cc 1 Stop other IVF Check BMP every 6 hours Avoid increase in sodium to more than 126 in 24 hours Monitor neurologic status closely If additional seizures noted or sodium rises above goal please notify Strict input and output CIWA protocol
[2021-09-25 19:34] LABS: Blood Urea Nitrogen 6 mg/dL (9-20); Calcium 9.2 mg/dL (8.4-10.2); Hemolysis Index 7
[2021-09-25 19:35] LABS: BUN/Creatinine Ratio 9
[2021-09-26 06:17] LABS: Basophils % (Auto) 0.6 % (0.0-1.8); Eosinophils # (Auto) 0.2 K/mm3 (0.0-0.4); Eosinophils % (Auto) 3.2 % (0.0-4.3); Hematocrit 40.6 % (35.5-45.6); Hemoglobin 14.2 gm/dl (11.8-15.2); Lymphocytes # (Auto) 1.2 K/mm3 (1.2-5.4); Lymphocytes % (Auto) 26.4 % (13.4-35.0); Mean Corpuscular HGB Conc 35 % (32-34); Mean Corpuscular Volume 88 fl (84-94); Monocytes # (Auto) 0.5 K/mm3 (0.0-0.8); Monocytes % (Auto) 10.3 % (0.0-7.3); Platelet Count 175 K/mm3 (140-440); Red Blood Count 4.64 M/mm3 (3.65-5.03); Red Cell Distribution Width 13.1 % (13.2-15.2)
[2021-09-26 07:29] LABS: BUN/Creatinine Ratio 9; Blood Urea Nitrogen 8 mg/dL (9-20); Calcium 9.8 mg/dL (8.4-10.2); Hemolysis Index 3
--- NOTE | 2021-09-26 08:47 | Progress Note ---
Assessment and Plan Assessment and plan: Patient is a 55-year-old male history of seizure disorder noncompliant with medication who was found down on the side of the road and was brought to the ED. Observed seizures while in the ED. Also found to have a sodium of 120. Admitted to medicine for further care. Currently alert and oriented x3. #Syncope -Patient found down on [place], has no recollection of events -CT head negative; UDS negative -Echocardiogram: mild diastolic dysfunction with normal LVEF -EKG sinus tachycardia; telemetry -could be secondary to unwitnessed seizure versus arrhythmia #Seizure disorder -hx of seizure disorder -continue Keppra -Neurology consulted, assistance appreciated #Hyponatremia -Na 120 -> 129 after 3% saline, goal Na 126 within 1st 24hrs -received 1 dose of DDAVP -q12h BMPs, salt tabs -Nephrology consulted, recs appreciated -Could be secondary to excessive alcohol intake #Hypomagnesemia -will replete and monitor #Alcohol dependence -Patient reports drinking 1-2 beers daily along with multiple shots of liquor -[facility] protocol while inpatient -Thiamine and folate supplementation -Counseled on detrimental effects of alcohol dependence including lowering of seizure threshold. Patient voiced understanding, but is very defensive about drinking habits. #Tobacco dependence -Patient smokes 1 pack of cigarettes per week -Counseled about tobacco cessation, patient not interested at this time. Disposition Plan: Continue medical management Total Time Spent with Patient (Minutes): 20 minutes History Interval history: No acute events overnight. Sodium noted to be 1 1:29 dose of 3% saline. Patient is feeling fine and wants to leave. Discussed importance of continued hospital stay. No other complaints at this time. Hospitalist Physical - Physical exam Narrative exam: GENERAL: Thin male. Lying in bed, no acute distress. HEENT: Chronic facial rash. CHEST/LUNGS: CTAB on room air HEART/CARDIOVASCULAR: Tachycardic. No murmur, rubs or gallops appreciated. ABDOMEN: +BS. NT/ND. NEURO: No focal motor deficit. Follows all commands. PSYCH: Cooperative. - Constitutional Vitals: Temp Pulse Resp BP Pulse Ox 98.2 F 102 H 19 124/84 100 09/25/21 06:11 09/26/21 03:00 09/26/21 03:00 09/26/21 03:00 09/26/21 03:00 Results - Labs CBC & Chem 7: 09/26/21 05:08 09/26/21 13:43 Labs: Laboratory Last Values WBC 4.7 K/mm3 (4.5-11.0) 09/26/21 05:08 RBC 4.64 M/mm3 (3.65-5.03) 09/26/21 05:08 Hgb 14.2 gm/dl (11.8-15.2) 09/26/21 05:08 Hct 40.6 % (35.5-45.6) 09/26/21 05:08 MCV 88 fl (84-94) 09/26/21 05:08 MCH 31 pg (28-32) 09/26/21 05:08 MCHC 35 % (32-34) H 09/26/21 05:08 RDW 13.1 % (13.2-15.2) L 09/26/21 05:08 Plt Count 175 K/mm3 (140-440) 09/26/21 05:08 Lymph % (Auto) 26.4 % (13.4-35.0) 09/26/21 05:08 [place] % (Auto) 10.3 % (0.0-7.3) H 09/26/21 05:08 Eos % (Auto) 3.2 % (0.0-4.3) 09/26/21 05:08 Baso % (Auto) 0.6 % (0.0-1.8) 09/26/21 05:08 Lymph # (Auto) 1.2 K/mm3 (1.2-5.4) 09/26/21 05:08 [place] # (Auto) 0.5 K/mm3 (0.0-0.8) 09/26/21 05:08 Eos # (Auto) 0.2 K/mm3 (0.0-0.4) 09/26/21 05:08 Baso # (Auto) 0.0 K/mm3 (0.0-0.1) 09/26/21 05:08 Add Manual Diff Complete 09/25/21 06:46 Seg Neutrophils % 59.5 % (40.0-70.0) 09/26/21 05:08 Nucleated RBC % Not Reportable 09/25/21 06:46 Seg Neutrophils # 2.8 K/mm3 (1.8-7.7) 09/26/21 05:08 WBC Morphology Not Reportable 09/25/21 06:46 Hypersegmented Neuts Not Reportable 09/25/21 06:46 Hyposegmented Neuts Not Reportable 09/25/21 06:46 Hypogranular Neuts Not Reportable 09/25/21 06:46 Smudge Cells Not Reportable 09/25/21 06:46 Toxic Granulation Not Reportable 09/25/21 06:46 Toxic Vacuolation Not Reportable 09/25/21 06:46 Dohle Bodies Not Reportable 09/25/21 06:46 Pelger-Huet Anomaly Not Reportable 09/25/21 06:46 Jez Rods Not Reportable 09/25/21 06:46 Platelet Estimate Not Reportable 09/25/21 06:46 Clumped Platelets Not Reportable 09/25/21 06:46 Plt Clumps, EDTA Not Reportable 09/25/21 06:46 Large Platelets Not Reportable 09/25/21 06:46 Giant Platelets Not Reportable 09/25/21 06:46 Platelet Satelliting Not Reportable 09/25/21 06:46 Plt Morphology Comment Not Reportable 09/25/21 06:46 RBC Morphology Not Reportable 09/25/21 06:46 Dimorphic RBCs Not Reportable 09/25/21 06:46 Polychromasia Not Reportable 09/25/21 06:46 Hypochromasia Not Reportable 09/25/21 06:46 Poikilocytosis Not Reportable 09/25/21 06:46 Anisocytosis Not Reportable 09/25/21 06:46 Microcytosis Not Reportable 09/25/21 06:46 Macrocytosis Not Reportable 09/25/21 06:46 Spherocytes Not Reportable 09/25/21 06:46 Pappenheimer Bodies Not Reportable 09/25/21 06:46 Sickle Cells Not Reportable 09/25/21 06:46 Target Cells Not Reportable 09/25/21 06:46 Tear Drop Cells Not Reportable 09/25/21 06:46 Ovalocytes Not Reportable 09/25/21 06:46 Helmet Cells Not Reportable 09/25/21 06:46 [place] Bodies Not Reportable 09/25/21 06:46 [place] Rings Not Reportable 09/25/21 06:46 [place] Cells Not Reportable 09/25/21 06:46 Bite Cells Not Reportable 09/25/21 06:46 Crenated Cell Not Reportable 09/25/21 06:46 Elliptocytes Not Reportable 09/25/21 06:46 Acanthocytes (Spur) Not Reportable 09/25/21 06:46 Rouleaux Not Reportable 09/25/21 06:46 Hemoglobin C Crystals Not Reportable 09/25/21 06:46 Schistocytes Not Reportable 09/25/21 06:46 Malaria parasites Not Reportable 09/25/21 06:46 Ike Bodies Not Reportable 09/25/21 06:46 Hem Pathologist Commnt No 09/25/21 06:46 ABG pH 7.421 pH Units (7.350-7.450) 09/25/21 09:13 ABG pCO2 32.7 mm Hg 09/25/21 09:13 ABG pO2 80.7 mm Hg (80.0-90.0) 09/25/21 09:13 ABG HCO3 20.8 mmol/L (20.0-26.0) 09/25/21 09:13 ABG O2 Saturation 96.2 % (95.0-99.0) 09/25/21 09:13 ABG O2 Content 18.1 (0.0-44) 09/25/21 09:13 ABG Base Excess -2.8 mmol/L (-2.0-3.0) L 09/25/21 09:13 ABG Hemoglobin 13.7 gm/dl (14.0-18.0) L 09/25/21 09:13 ABG Carboxyhemoglobin 1.8 % (0.0-5.0) 09/25/21 09:13 ABG Methemoglobin 0.6 % (0.0-1.5) 09/25/21 09:13 VBG pH 7.350 (7.320-7.420) 09/25/21 08:15 Oxyhemoglobin 93.9 % (95.0-99.0) L 09/25/21 09:13 FiO2 21 % 09/25/21 09:13 Sodium 129 mmol/L (137-145) L 09/26/21 05:08 Potassium 4.0 mmol/L (3.6-5.0) 09/26/21 05:08 Chloride 90.2 mmol/L (98-107) L 09/26/21 05:08 Carbon Dioxide 22 mmol/L (22-30) 09/26/21 05:08 Anion Gap 21 mmol/L 09/26/21 05:08 BUN 8 mg/dL (9-20) L 09/26/21 05:08 Creatinine 0.9 mg/dL (0.8-1.3) 09/26/21 05:08 Estimated GFR > 60 ml/min 09/26/21 05:08 BUN/Creatinine Ratio 9 % 09/26/21 05:08 Glucose 95 mg/dL (75-100) 09/26/21 05:08 POC Glucose 151 mg/dL (70-105) H 09/25/21 06:29 Calcium 9.8 mg/dL (8.4-10.2) 09/26/21 05:08 Phosphorus 3.80 mg/dL (2.5-4.5) 09/26/21 05:08 Magnesium 1.60 mg/dL (1.7-2.3) L 09/26/21 05:08 Total Bilirubin 0.80 mg/dL (0.1-1.2) 09/25/21 08:10 AST 78 units/L (5-40) H 09/25/21 08:10 ALT 48 units/L (7-56) 09/25/21 08:10 Alkaline Phosphatase 69 units/L (35-129) 09/25/21 08:10 Total Protein 9.1 g/dL (6.3-8.2) H 09/25/21 08:10 Albumin 4.5 g/dL (3.9-5) 09/25/21 08:10 Albumin/Globulin Ratio 1.0 % 09/25/21 08:10 Urine Color Straw (Yellow) 09/25/21 12:10 Urine Turbidity Clear (Clear) 09/25/21 12:10 Urine pH 6.0 (5.0-7.0) 09/25/21 12:10 Ur Specific [place] 1.004 (1.003-1.030) 09/25/21 12:10 Urine Protein <15 mg/dl mg/dL (Negative) 09/25/21 12:10 Urine Glucose (UA) Neg mg/dL (Negative) 09/25/21 12:10 Urine Ketones Neg mg/dL (Negative) 09/25/21 12:10 Urine Blood Sm (Negative) 09/25/21 12:10 Urine Nitrite Neg (Negative) 09/25/21 12:10 Urine Bilirubin Neg (Negative) 09/25/21 12:10 Urine Urobilinogen < 2.0 mg/dL (<2.0) 09/25/21 12:10 Ur Leukocyte Esterase Neg (Negative) 09/25/21 12:10 Urine WBC (Auto) < 1.0 /HPF (0.0-6.0) 09/25/21 12:10 Urine RBC (Auto) < 1.0 /HPF (0.0-6.0) 09/25/21 12:10 Urine Sodium 29 mmol/L 09/25/21 12:10 Urine Opiates Screen Negative 09/25/21 12:10 Urine Methadone Screen Negative 09/25/21 12:10 Ur Barbiturates Screen Negative 09/25/21 12:10 Ur Phencyclidine Scrn Negative 09/25/21 12:10 Ur Amphetamines Screen Negative 09/25/21 12:10 U Benzodiazepines Scrn Negative 09/25/21 12:10 Urine Cocaine Screen Negative 09/25/21 12:10 U Marijuana (THC) Screen Negative 09/25/21 12:10 Drugs of Abuse Note Disclamer 09/25/21 12:10 Plasma/Serum Alcohol 0.05 % (0-0.07) 09/25/21 06:46 Active Medications - Current Medications Current Medications: Generic Name Dose Route Start Last Admin Trade Name Freq PRN Reason Stop Dose Admin Acetaminophen 650 mg 09/25/21 10:30 Acetaminophen 325 Mg Tab PO Q4H PRN Pain MILD(1-3)/Fever >100.5/MILLER Levetiracetam 500 mg/ Dextrose 105 mls @ 400 mls/hr 09/25/21 22:00 IV Q12HR TOMMY Thiamine HCl 100 mg/ Sodium 51 mls @ 100 mls/hr 09/26/21 10:00 Chloride IV QDAY TOMMY Folic Acid 1 mg/ Sodium 50.2 mls @ 200.8 mls/hr 09/25/21 16:00 09/25/21 16:35 Chloride IV Infused QDAY [facility] Infusion Magnesium Sulfate 4 gm in 100 mls @ 25 mls/hr 09/26/21 08:45 Magnesium Sulfate 4gm/100ml IV 09/26/21 12:44 ONCE ONE Desmopressin Acetate 2 mcg/ 50.5 mls @ 100 mls/hr 09/26/21 08:46 Sodium Chloride IV 09/26/21 09:15 ONCE ONE Lorazepam 2 mg 09/25/21 09:22 Lorazepam 2 Mg/Ml Vial IV Q1HR PRN CIWA-Ar 8-15 Lorazepam 4 mg 09/25/21 09:22 Lorazepam 2 Mg/Ml Vial IV Q1HR PRN CIWA-Ar 16-25 Morphine Sulfate 4 mg 09/25/21 11:00 Morphine 4 Mg/1 Ml Inj IV Q4H PRN Pain , Severe (7-10) Ondansetron HCl 4 mg 09/25/21 11:00 Ondansetron 4 Mg/2 Ml Inj IV Q8H PRN Nausea And Vomiting Oxycodone/Acetaminophen 1 tab 09/25/21 11:00 Oxycodone /Acetaminophen 5-325mg Tab PO Q6H PRN Pain, Moderate (4-6) Sodium Chloride 10 ml 09/25/21 11:00 09/25/21 10:40 Sodium Chloride 0.9% 10 Ml Flush Syringe IV 10 ml BID TOMMY Administration Sodium Chloride 10 ml 09/25/21 11:00 Sodium Chloride 0.9% 10 Ml Flush Syringe IV PRN PRN LINE FLUSH
[2021-09-26] MEDS ORDERED: MAGNESIUM SULFATE 4 GM/100 ML BAG IV ONE (09:30)
[2021-09-26] MEDS ORDERED: DESMOPRESSIN ACETATE 2 MCG in SODIUM CHLORIDE 0.9% 50 ML IV ONE (09:30)
--- NOTE | 2021-09-26 09:30 | Consultation ---
History of Present Illness Consult date: 09/26/21 Reason for Consult: recurrent seizure,poor compliance and hx of alcoholism History of present illness: found down on highway History of present illness: 55-year-old male with history of seizure disorder who presented after being found down on the highway he does not drive Upon arrival patient had a witnessed seizure and was treated medically. Sodium was low at 120. Patient was also tachycardic. He was admitted to medicine for further care. At time of interview patient is alert and oriented x3. He does not recall any events surrounding him being found down. He denies chest pain, shortness of breath, palpitations, lightheadedness, dizziness prior to and after. He was taking seizure medications in the past but stopped due to lack of money. He also drinks 12 or 16 ounces beers daily along with at least 2 shots of liquor. Further probing into alcohol use was unsuccessful. Patient did not want to quantify how much he drinks in says he "does not drink like that". In ER CT brain is unremarkable Ct cervical spine showed cervical spondylosis -UDS is unremarkable -NA#123 initially -Echo showed EF#55-60% Past History Past Medical History: other (seizure) Social history: smoking (1 pack of cigarettes weekly), alcohol abuse (drinks 12- 16 oz beers and 2 shots of liquor daily) Medications and Allergies Allergies Allergy/AdvReac Type Severity Reaction Status Date / Time No Known Allergies Allergy Unverified 06/17/21 10:52 Home Medications Medication Instructions Recorded Confirmed Last Taken Type levETIRAcetam [Keppra TAB] 500 mg PO BID #60 tablet 06/17/21 Unknown Rx Active Meds: Active Medications Acetaminophen (Acetaminophen 325 Mg Tab) 650 mg PO Q4H PRN PRN Reason: Pain MILD(1-3)/Fever >100.5/MILLER Dextrose/Sodium Chloride (D5ns) 1,000 mls @ 150 mls/hr IV DIRECT TOMMY Lorazepam (Lorazepam 2 Mg/Ml Vial) 2 mg IV Q1HR PRN PRN Reason: CIWA-Ar 8-15 Lorazepam (Lorazepam 2 Mg/Ml Vial) 4 mg IV Q1HR PRN PRN Reason: CIWA-Ar 16-25 Morphine Sulfate (Morphine 4 Mg/1 Ml Inj) 4 mg IV Q4H PRN PRN Reason: Pain , Severe (7-10) Ondansetron HCl (Ondansetron 4 Mg/2 Ml Inj) 4 mg IV Q8H PRN PRN Reason: Nausea And Vomiting Oxycodone/Acetaminophen (Oxycodone /Acetaminophen 5-325mg Tab) 1 tab PO Q6H PRN PRN Reason: Pain, Moderate (4-6) Sodium Chloride (Sodium Chloride 0.9% 10 Ml Flush Syringe) 10 ml IV BID TOMMY Sodium Chloride (Sodium Chloride 0.9% 10 Ml Flush Syringe) 10 ml IV PRN PRN PRN Reason: LINE FLUSH Review of Systems All systems: negative Constitutional: poor appetite Past History Past Medical History: other (seizure) Social history: smoking (1 pack of cigarettes weekly), alcohol abuse (drinks 12- 16 oz beers and 2 shots of liquor daily) Medications and Allergies Allergies Allergy/AdvReac Type Severity Reaction Status Date / Time No Known Allergies Allergy Unverified 06/17/21 10:52 Home Medications Medication Instructions Recorded Confirmed Last Taken Type levETIRAcetam [Keppra TAB] 500 mg PO BID #60 tablet 06/17/21 Unknown Rx Active Meds: Active Medications Acetaminophen (Acetaminophen 325 Mg Tab) 650 mg PO Q4H PRN PRN Reason: Pain MILD(1-3)/Fever >100.5/MILLER Levetiracetam 500 mg/ Dextrose 105 mls @ 400 mls/hr IV Q12HR [facility] Thiamine HCl 100 mg/ Sodium (Chloride) 51 mls @ 100 mls/hr IV QDAY [facility] Folic Acid 1 mg/ Sodium (Chloride) 50.2 mls @ 200.8 mls/hr IV QDAY [facility] Last Infusion: 09/25/21 16:35 Dose: Infused Documented by: Magnesium Sulfate (Magnesium Sulfate 4gm/100ml) 4 gm in 100 mls @ 25 mls/hr IV ONCE ONE Stop: 09/26/21 13:29 Desmopressin Acetate 2 mcg/ (Sodium Chloride) 50.5 mls @ 100 mls/hr IV ONCE ONE Stop: 09/26/21 10:00 Lorazepam (Lorazepam 2 Mg/Ml Vial) 2 mg IV Q1HR PRN PRN Reason: CIWA-Ar 8-15 Lorazepam (Lorazepam 2 Mg/Ml Vial) 4 mg IV Q1HR PRN PRN Reason: CIWA-Ar 16-25 Morphine Sulfate (Morphine 4 Mg/1 Ml Inj) 4 mg IV Q4H PRN PRN Reason: Pain , Severe (7-10) Ondansetron HCl (Ondansetron 4 Mg/2 Ml Inj) 4 mg IV Q8H PRN PRN Reason: Nausea And Vomiting Oxycodone/Acetaminophen (Oxycodone /Acetaminophen 5-325mg Tab) 1 tab PO Q6H PRN PRN Reason: Pain, Moderate (4-6) Sodium Chloride (Sodium Chloride 0.9% 10 Ml Flush Syringe) 10 ml IV BID TOMMY Last Admin: 09/25/21 10:40 Dose: 10 ml Documented by: Sodium Chloride (Sodium Chloride 0.9% 10 Ml Flush Syringe) 10 ml IV PRN PRN PRN Reason: LINE FLUSH Physical Examination - Vital Signs Vital Signs: Vital Signs Temp Pulse Resp BP Pulse Ox 98.2 F 108 H 20 172/110 99 09/25/21 06:11 09/25/21 06:11 09/25/21 06:11 09/25/21 06:11 09/25/21 06:11 - Constitutional General appearance: comfortable - EENT EENT: Present: PERRL, mucous membranes moist - Respiratory Respiratory: Present: lungs clear, rhonchi - Cardiovascular Cardiovascular: Present: regular rate, normal S1, normal S2 Extremities: Present: no peripheral edema bilatateraly, no clubbing, cyanosis - Gastrointestinal Gastrointestinal: Present: normoactive bowel sounds - Integumentary Integumentary: Present: normal - Neurologic Cranial nerve examination: PERRL, EOMI, intact Speech examination: intact Sensorimotor examination: intact Detailed motor examination: grossly full strength in (he is complainig of left knee pain and difficulty walking ) Results - Laboratory Findings CBC and BMP: 09/26/21 05:08 09/26/21 05:08 Abnormal Lab Findings: Abnormal Labs 09/25/21 09/25/21 09/25/21 06:29 06:46 08:10 MCHC RDW 13.0 L Lymph % (Auto) 43.6 H [place] % (Auto) 9.1 H ABG Base Excess ABG Hemoglobin Oxyhemoglobin Sodium 120 L Chloride 80.1 L Carbon Dioxide 15 L BUN 5 L Creatinine 0.7 L Glucose 106 H POC Glucose 151 H Magnesium 1.60 L AST 78 H Total Protein 9.1 H 09/25/21 09/25/21 09/25/21 09:13 15:49 18:55 MCHC RDW Lymph % (Auto) [place] % (Auto) ABG Base Excess -2.8 L ABG Hemoglobin 13.7 L Oxyhemoglobin 93.9 L Sodium 123 L 124 L Chloride 87.6 L Carbon Dioxide 21 L BUN 6 L Creatinine 0.7 L Glucose POC Glucose Magnesium AST Total Protein 09/26/21 09/26/21 05:08 05:08 MCHC 35 H RDW 13.1 L Lymph % (Auto) [place] % (Auto) 10.3 H ABG Base Excess ABG Hemoglobin Oxyhemoglobin Sodium 129 L Chloride 90.2 L Carbon Dioxide BUN 8 L Creatinine Glucose POC Glucose Magnesium 1.60 L AST Total Protein Assessment and Plan Assessment and Plan Assessment and plan: Patient is a 55-year-old male history of seizure disorder noncompliant with medication who was found down on the side of the road and was brought to the ED. Observed seizures while in the ED. Also found to have a sodium of 120. Admitted to medicine for further care. Currently alert and oriented x3. #Syncope -Patient found down on [place], has no recollection of events -CT head negative; UDS negative -Echocardiogram Ef#55-60% -EKG sinus tachycardia; telemetry -could be secondary to unwitnessed seizure versus arrhythmia #Seizure disorder -hx of seizure disorder -Was taking Keppra 500 mg twice daily in the past; will restart while inpatient -Patient stopped taking medications due to inability to pay for them -Counseled on the importance of continuing antiepileptic medications -pt. instructed to stop alcohol intake due to risk of worsening hids seizure -MRI brain with gd -EEG -Seizure precaution no driving #Hyponatremia -Na 120 -Specific gravity low -Urine sodium, osms ordered -We will give 1 L bolus of hypertonic saline -Every 6 hours sodium checks -Nephrology consulted, recs appreciated -Could be secondary to excessive alcohol intake #Hypomagnesemia -received magnesium supplementation in ED -will replete and monitor #Alcohol dependence -Patient reports drinking 1-2 beers daily along with multiple shots of liquor -CIWA protocol while inpatient -Thiamine and folate supplementation -Counseled on detrimental effects of alcohol dependence including lowering of seizure threshold. Patient voiced understanding, but is very defensive about drinking habits. Time+15 minutes #Tobacco dependence -Patient smokes 1 pack of cigarettes per week -Counseled about tobacco cessation, patient not interested at this time. Advance Directives: No VTE prophylaxis?: Chemical, Mechanical Plan of care discussed with patient/family: Yes PLAN 1- MRI brain with gd 2-EEG 3- Keppra 500 mg bid and comply with medication 4- correct electrolytes abnormalities 5- Alcohol and smoking abstence 6- left knee xary -- complain of left knee pain and difficulty walking 7- Pt evaluate will follow
--- NOTE | 2021-09-26 10:18 | Progress Note ---
Assessment and Plan Impression: Severe hyponatremia, duration unclear History of seizure disorder Alcohol dependence volume depletion Plan: Ordered 3% 100 cc 1-Na 129 and better add salt tabs and NS follow up lytes Check BMP every 12 hours Monitor neurologic status closely If additional seizures noted or sodium rises above goal please notify Strict input and output CIWA protocol Subjective Date of service: 09/26/21 Interval history: resting in bed today Objective - Exam Narrative Exam: GENERAL: Thin male. Lying in bed, no acute distress. HEENT: Chronic facial rash. CHEST/LUNGS: CTAB on room air HEART/CARDIOVASCULAR: Tachycardic. No murmur, rubs or gallops appreciated. ABDOMEN: +BS. NT/ND. NEURO: No focal motor deficit. Follows all commands. MUSCULOSKELETAL: No joint effusion EXTREMITIES: No cyanosis, clubbing or edema. PSYCH: Cooperative. - Vital Signs Vital signs: Vital Signs - 12hr 09/25/21 09/26/21 09/26/21 23:00 00:00 01:00 Pulse Rate 102 H 115 H 120 H Respiratory 19 21 20 Rate Blood Pressure 121/86 111/78 110/76 O2 Sat by Pulse 100 98 98 Oximetry 09/26/21 09/26/21 09/26/21 02:00 03:00 03:40 Pulse Rate 105 H 102 H 100 H Respiratory 18 19 19 Rate Blood Pressure 101/73 124/84 124/84 O2 Sat by Pulse 100 Oximetry 09/26/21 09/26/21 09/26/21 03:50 04:00 04:10 Pulse Rate 107 H 107 H 105 H Respiratory 20 17 20 Rate Blood Pressure 124/84 111/83 111/83 O2 Sat by Pulse 100 Oximetry 09/26/21 09/26/21 09/26/21 04:20 04:30 04:40 Pulse Rate 105 H 113 H 102 H Respiratory 22 18 19 Rate Blood Pressure 111/83 111/83 111/83 O2 Sat by Pulse 100 89 Oximetry 09/26/21 09/26/21 09/26/21 04:50 05:00 05:10 Pulse Rate 103 H 100 H 113 H Respiratory 17 19 20 Rate Blood Pressure 111/83 121/82 121/82 O2 Sat by Pulse Oximetry 09/26/21 09/26/21 09/26/21 05:20 05:30 05:40 Pulse Rate 110 H 108 H 104 H Respiratory 19 19 20 Rate Blood Pressure 121/82 121/82 121/82 O2 Sat by Pulse Oximetry 09/26/21 09/26/21 09/26/21 05:50 06:00 06:10 Pulse Rate 109 H 110 H 103 H Respiratory 19 14 19 Rate Blood Pressure 121/82 117/83 117/83 O2 Sat by Pulse Oximetry 09/26/21 09/26/21 09/26/21 06:20 06:30 06:40 Pulse Rate 114 H 112 H 114 H Respiratory 17 21 19 Rate Blood Pressure 117/83 117/83 117/83 O2 Sat by Pulse Oximetry 09/26/21 09/26/21 09/26/21 06:50 07:00 07:10 Pulse Rate 117 H 111 H 109 H Respiratory 20 15 17 Rate Blood Pressure 117/83 99/75 99/75 O2 Sat by Pulse 69 L Oximetry 09/26/21 09/26/21 09/26/21 07:20 07:30 07:40 Pulse Rate 113 H 107 H 115 H Respiratory 20 18 16 Rate Blood Pressure 99/75 99/75 99/75 O2 Sat by Pulse Oximetry 09/26/21 09/26/21 09/26/21 07:50 08:00 08:10 Pulse Rate 106 H 111 H 112 H Respiratory 23 22 22 Rate Blood Pressure 99/75 120/87 120/87 O2 Sat by Pulse Oximetry 09/26/21 09/26/21 09/26/21 08:20 08:30 08:40 Pulse Rate 105 H 111 H 114 H Respiratory 17 17 17 Rate Blood Pressure 120/87 120/87 120/87 O2 Sat by Pulse 65 L 59 L Oximetry 09/26/21 09:37 Pulse Rate 125 H Respiratory 19 Rate Blood Pressure 143/99 O2 Sat by Pulse 100 Oximetry - Lab 09/26/21 05:08 09/26/21 05:08 Most recent lab results ABG pH 7.421 pH Units (7.350-7.450) 09/25/21 09:13 ABG pCO2 32.7 mm Hg 09/25/21 09:13 ABG pO2 80.7 mm Hg (80.0-90.0) 09/25/21 09:13 ABG HCO3 20.8 mmol/L (20.0-26.0) 09/25/21 09:13 ABG O2 Saturation 96.2 % (95.0-99.0) 09/25/21 09:13 Calcium 9.8 mg/dL (8.4-10.2) 09/26/21 05:08 Phosphorus 3.80 mg/dL (2.5-4.5) 09/26/21 05:08 Magnesium 1.60 mg/dL (1.7-2.3) L 09/26/21 05:08 Urine Sodium 29 mmol/L 09/25/21 12:10 Medications & Allergies - Medications Allergies/Adverse Reactions: Allergies No Known Allergies Allergy (Unverified 06/17/21 10:52) Home Medications: Home Medications Medication Instructions Recorded Confirmed Last Taken Type levETIRAcetam [Keppra TAB] 500 mg PO BID #60 tablet 06/17/21 Unknown Rx Active Medications: Generic Name Dose Route Start Last Admin Trade Name Freq PRN Reason Stop Dose Admin Acetaminophen 650 mg 09/25/21 10:30 Acetaminophen 325 Mg Tab PO Q4H PRN Pain MILD(1-3)/Fever >100.5/MILLER Levetiracetam 500 mg/ Dextrose 105 mls @ 400 mls/hr 09/25/21 22:00 IV Q12HR TOMMY Thiamine HCl 100 mg/ Sodium 51 mls @ 100 mls/hr 09/26/21 10:00 Chloride IV QDAY TOMMY Folic Acid 1 mg/ Sodium 50.2 mls @ 200.8 mls/hr 09/25/21 16:00 09/25/21 16:35 Chloride IV Infused QDAY TOMMY Infusion Magnesium Sulfate 4 gm in 100 mls @ 25 mls/hr 09/26/21 09:30 Magnesium Sulfate 4gm/100ml IV 09/26/21 13:29 ONCE ONE Lorazepam 2 mg 09/25/21 09:22 Lorazepam 2 Mg/Ml Vial IV Q1HR PRN CIWA-Ar 8-15 Lorazepam 4 mg 09/25/21 09:22 Lorazepam 2 Mg/Ml Vial IV Q1HR PRN CIWA-Ar 16-25 Morphine Sulfate 4 mg 09/25/21 11:00 Morphine 4 Mg/1 Ml Inj IV Q4H PRN Pain , Severe (7-10) Ondansetron HCl 4 mg 09/25/21 11:00 Ondansetron 4 Mg/2 Ml Inj IV Q8H PRN Nausea And Vomiting Oxycodone/Acetaminophen 1 tab 09/25/21 11:00 Oxycodone /Acetaminophen 5-325mg Tab PO Q6H PRN Pain, Moderate (4-6) Sodium Chloride 10 ml 09/25/21 11:00 09/25/21 10:40 Sodium Chloride 0.9% 10 Ml Flush Syringe IV 10 ml BID TOMMY Administration Sodium Chloride 10 ml 09/25/21 11:00 Sodium Chloride 0.9% 10 Ml Flush Syringe IV PRN PRN LINE FLUSH
[2021-09-26] MEDS: SODIUM CHLORIDE 0.9% 1000 ML 1,000 ML IV SCH (11:29)
[2021-09-26] MEDS: SODIUM CHLORIDE 1 GM TAB PO SCH ×2 (13:17→19:50)
[2021-09-26 14:24] LABS: BUN/Creatinine Ratio 15; Blood Urea Nitrogen 12 mg/dL (9-20); Calcium 9.4 mg/dL (8.4-10.2); Hemolysis Index 392
--- NOTE | 2021-09-26 16:15 | XRay Report ---
RIGHT KNEE 2 VIEW(S) INDICATION / CLINICAL INFORMATION: RIGHT KNEE PAIN AND WEAKNESS COMPARISON: None available. FINDINGS: BONES / JOINT(S): No acute fracture or subluxation. Moderate DJD. Chondrocalcinosis of the lateral me niscus. SOFT TISSUES: No significant abnormality. ADDITIONAL FINDINGS: None. Signer Name: Topher Loo MD Signed: 09/26/2021 4:11 PM Workstation Name: [email or web address]
[2021-09-26] MEDS: levETIRAcetam 500 MG in DEXTROSE 5% IN WATER 100 ML IV SCH ×2 (16:36→23:50)
[2021-09-26] MEDS: THIAMINE 100 MG in SODIUM CHLORIDE 0.9% 50 ML IV SCH (16:37)
[2021-09-26] MEDS: FOLIC ACID 1 MG in SODIUM CHLORIDE 0.9% 50 ML IV SCH (16:37)
[2021-09-26 19:51] LABS: BUN/Creatinine Ratio 15; Blood Urea Nitrogen 12 mg/dL (9-20); Calcium 8.9 mg/dL (8.4-10.2); Hemolysis Index 51
[2021-09-27 01:01] LABS: BUN/Creatinine Ratio 12; Blood Urea Nitrogen 11 mg/dL (9-20); Calcium 9.5 mg/dL (8.4-10.2); Hemolysis Index 8
[2021-09-27] MEDS: SODIUM CHLORIDE 0.9% 1000 ML 1,000 ML IV SCH (05:51)
[2021-09-27] MEDS: levETIRAcetam 500 MG in DEXTROSE 5% IN WATER 100 ML IV SCH ×4 (08:34→21:52)
--- NOTE | 2021-09-27 09:12 | Progress Note ---
Assessment and Plan Impression: Severe hyponatremia, duration unclear History of seizure disorder Alcohol dependence delirium volume depletion Plan: Na 129 this am and stable, likely chronic with history of etoh abuse, Na 130 is the goal added salt tabs and NS follow up lytes Check BMP every 12 hours Monitor neurologic status closely If additional seizures noted or sodium rises above goal please notify Strict input and output CIWA protocol Subjective Date of service: 09/27/21 Principal diagnosis: hyponatremia Interval history: resting in bed today Objective - Exam Narrative Exam: GENERAL: Thin male. Lying in bed, no acute distress. HEENT: Chronic facial rash. CHEST/LUNGS: CTAB on room air HEART/CARDIOVASCULAR: Tachycardic. No murmur, rubs or gallops appreciated. ABDOMEN: +BS. NT/ND. NEURO: No focal motor deficit. Follows all commands. MUSCULOSKELETAL: No joint effusion EXTREMITIES: No cyanosis, clubbing or edema. PSYCH: Cooperative. - Vital Signs Vital signs: Vital Signs - 12hr 09/26/21 09/27/21 09/27/21 21:45 00:00 00:32 Temperature Pulse Rate 104 H Respiratory Rate Blood Pressure 142/105 116/78 Blood Pressure [Left] O2 Sat by Pulse 97 100 Oximetry 09/27/21 09/27/21 09/27/21 04:35 04:58 08:08 Temperature 97.8 F 97.9 F Pulse Rate 98 H 89 93 H Respiratory 20 18 Rate Blood Pressure 161/98 144/95 Blood Pressure 161/98 [Left] O2 Sat by Pulse 100 100 Oximetry - Lab 09/26/21 05:08 09/27/21 00:27 Most recent lab results ABG pH 7.421 pH Units (7.350-7.450) 09/25/21 09:13 ABG pCO2 32.7 mm Hg 09/25/21 09:13 ABG pO2 80.7 mm Hg (80.0-90.0) 09/25/21 09:13 ABG HCO3 20.8 mmol/L (20.0-26.0) 09/25/21 09:13 ABG O2 Saturation 96.2 % (95.0-99.0) 09/25/21 09:13 Calcium 9.5 mg/dL (8.4-10.2) 09/27/21 00:27 Phosphorus 3.80 mg/dL (2.5-4.5) 09/26/21 05:08 Magnesium 1.60 mg/dL (1.7-2.3) L 09/26/21 05:08 Urine Sodium 29 mmol/L 09/25/21 12:10 Medications & Allergies - Medications Allergies/Adverse Reactions: Allergies No Known Allergies Allergy (Unverified 06/17/21 10:52) Home Medications: Home Medications Medication Instructions Recorded Confirmed Last Taken Type levETIRAcetam [Keppra TAB] 500 mg PO BID #60 tablet 06/17/21 Unknown Rx Active Medications: Generic Name Dose Route Start Last Admin Trade Name Freq PRN Reason Stop Dose Admin Acetaminophen 650 mg 09/25/21 10:30 Acetaminophen 325 Mg Tab PO Q4H PRN Pain MILD(1-3)/Fever >100.5/MILLER Levetiracetam 500 mg/ Dextrose 105 mls @ 400 mls/hr 09/25/21 22:00 09/27/21 08:35 IV Not Given Q12HR TOMMY Thiamine HCl 100 mg/ Sodium 51 mls @ 100 mls/hr 09/26/21 10:00 09/26/21 16:37 Chloride IV 100 mls/hr QDAY TOMMY Administration Folic Acid 1 mg/ Sodium 50.2 mls @ 200.8 mls/hr 09/25/21 16:00 09/26/21 16:37 Chloride IV 200.8 mls/hr QDAY TOMMY Administration Sodium Chloride 1,000 mls @ 84 mls/hr 09/26/21 11:00 09/27/21 05:51 Nacl 0.9% 1000 Ml IV 84 mls/hr DIRECT TOMMY Administration Lorazepam 2 mg 09/25/21 09:22 Lorazepam 2 Mg/Ml Vial IV Q1HR PRN CIWA-Ar 8-15 Lorazepam 4 mg 09/25/21 09:22 Lorazepam 2 Mg/Ml Vial IV Q1HR PRN CIWA-Ar 16-25 Morphine Sulfate 4 mg 09/25/21 11:00 Morphine 4 Mg/1 Ml Inj IV Q4H PRN Pain , Severe (7-10) Ondansetron HCl 4 mg 09/25/21 11:00 Ondansetron 4 Mg/2 Ml Inj IV Q8H PRN Nausea And Vomiting Oxycodone/Acetaminophen 1 tab 09/25/21 11:00 Oxycodone /Acetaminophen 5-325mg Tab PO Q6H PRN Pain, Moderate (4-6) Sodium Chloride 10 ml 09/25/21 11:00 09/26/21 23:55 Sodium Chloride 0.9% 10 Ml Flush Syringe IV 10 ml BID TOMMY Administration Sodium Chloride 10 ml 09/25/21 11:00 Sodium Chloride 0.9% 10 Ml Flush Syringe IV PRN PRN LINE FLUSH
[2021-09-27] MEDS: THIAMINE 100 MG in SODIUM CHLORIDE 0.9% 50 ML IV SCH (09:35)
[2021-09-27] MEDS: SODIUM CHLORIDE 1 GM TAB PO SCH ×4 (09:36→21:53)
[2021-09-27] MEDS: FOLIC ACID 1 MG in SODIUM CHLORIDE 0.9% 50 ML IV SCH (09:46)
--- NOTE | 2021-09-27 11:26 | Electrocardiograph Report ---
[facility] Test Date: 2021-09-25 Test Time: 07:24:01 Pat Name: JULIANA LEARY Department: Room: A486 Gender: M Academic Manager: VAUGHN : 1965 Requested By: VILMA CHRISTINA Order Number: [id number] Reading MD: Patricia Gray Measurements Intervals [place] Rate: 116 P: 66 DE: 151 QRS: 42 QRSD: 100 T: 10 QT: 324 QTc: 451 Interpretive Statements Sinus tachycardia Compared to ECG 06/17/2021 12:23:00 Sinus rate has increased Electronically Signed On 09-27-2021 11:26:45 EST by Patricia Gray
--- NOTE | 2021-09-27 12:22 | Progress Note ---
Assessment and Plan Assessment and Plan Assessment and plan: Patient is a 55-year-old male history of seizure disorder noncompliant with medication who was found down on the side of the road and was brought to the ED. Observed seizures while in the ED. Also found to have a sodium of 120. Admitted to medicine for further care. Currently alert and oriented x3. #Syncope -Patient found [place] on [place], has no recollection of events -CT head negative; UDS negative -Echocardiogram Ef#55-60% -EKG sinus tachycardia; telemetry -could be secondary to unwitnessed seizure versus arrhythmia #Seizure disorder -hx of seizure disorder -Was taking Keppra 500 mg twice daily in the past; will restart while inpatient -Patient stopped taking medications due to inability to pay for them -Counseled on the importance of continuing antiepileptic medications -pt. instructed to stop alcohol intake due to risk of worsening hids seizure -MRI brain with gd -EEG -Seizure precaution no driving #Hyponatremia -Na 120---129 -Specific gravity low -Urine sodium, osms ordered -We will give 1 L bolus of hypertonic saline -Every 6 hours sodium checks -Nephrology consulted, recs appreciated -Could be secondary to excessive alcohol intake #Hypomagnesemia -received magnesium supplementation in ED -will replete and monitor #Alcohol dependence -Patient reports drinking 1-2 beers daily along with multiple shots of liquor -[facility] protocol while inpatient -Thiamine and folate supplementation -Counseled on detrimental effects of alcohol dependence including lowering of seizure threshold. Patient voiced understanding, but is very defensive about drinking habits. Time+15 minutes #Tobacco dependence -Patient smokes 1 pack of cigarettes per week -Counseled about tobacco cessation, patient not interested at this time. Advance Directives: No VTE prophylaxis?: Chemical, Mechanical Plan of care discussed with patient/family: Yes PLAN 1- MRI brain with gd pending 2-EEG slowing 3- Keppra 500 mg bid and comply with medication 4- correct electrolytes abnormalities 5- Alcohol and smoking abstence 6- left knee xary -- noted 7- Pt evaluate will follow Subjective Date of service: 09/27/21 Principal diagnosis: hyponatremia Interval history: no seizure alert interactive today could not do MRI due to agitation no sign of DT move alllimbs NA#129 today xry left knee remarkable for left lateral lemniscus chondrocalcinosis Objective - Vital Sign Vital Signs - 12hr 09/27/21 09/27/21 09/27/21 00:32 04:35 04:58 Temperature 97.8 F Pulse Rate 104 H 98 H 89 Respiratory 20 Rate Blood Pressure 116/78 161/98 Blood Pressure 161/98 [Left] O2 Sat by Pulse 100 100 Oximetry 09/27/21 08:08 Temperature 97.9 F Pulse Rate 93 H Respiratory 18 Rate Blood Pressure 144/95 Blood Pressure [Left] O2 Sat by Pulse 100 Oximetry - General Apperance Constitutional: comfortable - EENT EENT: PERRL, mucous membranes moist - Respiratory Respiratory: chest non-tender, lungs clear - Cardiovascular Cardiovascular: regular rate, normal S1, normal S2 Extremities: no peripheral edema bilat, no clubbing, cyanosis - Gastrointestinal Gastrointestinal: normoactive bowel sounds - Integumentary Integumentary: normal - Neurologic Cranial nerve examination: PERRL, EOMI, intact Speech examination: intact Detailed motor examination: grossly full strength in - Laboratory Findings CBC and BMP: 09/26/21 05:08 09/27/21 00:27 Abnormal Lab Findings: Abnormal Labs 09/25/21 09/25/21 09/25/21 06:29 06:46 08:10 MCHC RDW 13.0 L Lymph % (Auto) 43.6 H [place] % (Auto) 9.1 H ABG Base Excess ABG Hemoglobin Oxyhemoglobin Sodium 120 L Potassium Chloride 80.1 L Carbon Dioxide 15 L BUN 5 L Creatinine 0.7 L Glucose 106 H POC Glucose 151 H Magnesium 1.60 L AST 78 H Total Protein 9.1 H 09/25/21 09/25/21 09/25/21 09:13 15:49 18:55 MCHC RDW Lymph % (Auto) [place] % (Auto) ABG Base Excess -2.8 L ABG Hemoglobin 13.7 L Oxyhemoglobin 93.9 L Sodium 123 L 124 L Potassium Chloride 87.6 L Carbon Dioxide 21 L BUN 6 L Creatinine 0.7 L Glucose POC Glucose Magnesium AST Total Protein 09/26/21 09/26/21 09/26/21 05:08 05:08 13:43 MCHC 35 H RDW 13.1 L Lymph % (Auto) [place] % (Auto) 10.3 H ABG Base Excess ABG Hemoglobin Oxyhemoglobin Sodium 129 L 123 L Potassium Chloride 90.2 L 89.7 L Carbon Dioxide BUN 8 L Creatinine Glucose 131 H POC Glucose Magnesium 1.60 L AST Total Protein 09/26/21 09/27/21 19:05 00:27 MCHC RDW Lymph % (Auto) [place] % (Auto) ABG Base Excess ABG Hemoglobin Oxyhemoglobin Sodium 131 L D 129 L Potassium 3.5 L Chloride 97.6 L 93.7 L Carbon Dioxide 21 L BUN Creatinine Glucose 135 H 167 H POC Glucose Magnesium AST Total Protein
--- NOTE | 2021-09-27 17:12 | Progress Note ---
Assessment and Plan Assessment and plan: Patient is a 55-year-old male history of seizure disorder noncompliant with medication who was found down on the side of the road and was brought to the ED. Observed seizures while in the ED. Also found to have a sodium of 120. Admitted to medicine for further care. Currently alert and oriented x3. #Syncope -Patient found down on [place], has no recollection of events -CT head negative; UDS negative -Echocardiogram: mild diastolic dysfunction with normal LVEF -EKG sinus tachycardia; telemetry -could be secondary to unwitnessed seizure versus arrhythmia #Seizure disorder -hx of seizure disorder -continue Keppra 500 mg twice daily -Neurology consulted, assistance appreciated -Pending MRI brain with gadolinium. Original attempt on 09/26/2021 was unsuccessful due to patient refusing and not being able to cooperate. Pending repeat on 09/28/2021. Ordering IV Ativan 2 mg x 1 prior to MRI. #Hyponatremia-improved -Na 120 -> 129 after 3% saline, goal Na 126 within 1st 24hrs -received 1 dose of DDAVP -q12h BMPs, salt tabs -Nephrology consulted, recs appreciated -Likely secondary to excessive alcohol intake #Hypomagnesemia -will replete and monitor #Alcohol dependence #Alcohol cessation counseling -Patient reports drinking 1-2 beers daily along with multiple shots of liquor -[facility] protocol while inpatient -Thiamine and folate supplementation -Counseled on detrimental effects of alcohol dependence including lowering of seizure threshold. Patient voiced understanding, but is very defensive about drinking habits. -Time: +10 minutes #Tobacco dependence #Tobacco cessation counseling -Patient smokes 1 pack of cigarettes per week -Counseled about tobacco cessation, patient not interested at this time. -Time: +10 minutes #Advanced care planning -Disease education conducted, care plan discussed, diagnoses discussed, prognosis discussed, and patient acknowledges understanding with care plan -Time: +20 minutes Disposition Plan: Continue medical management Total Time Spent with Patient (Minutes): 45 minutes History Interval history: Patient refused to have MRI brain done. Hospitalist Physical - Constitutional Vitals: Temp Pulse Resp BP Pulse Ox 97.9 F 93 H 18 144/95 97 09/27/21 08:08 09/27/21 12:00 09/27/21 08:08 09/27/21 08:08 09/27/21 12:00 General appearance: Present: no acute distress, well-nourished - EENT Eyes: Present: PERRL, EOM intact ENT: hearing intact, clear oral mucosa - Neck Neck: Present: supple, normal ROM - Respiratory Respiratory effort: normal Respiratory: bilateral: CTA - Cardiovascular Rhythm: regularly irregular Heart Sounds: Present: S1 & S2 - Extremities Extremities: no ischemia, pulses intact, pulses symmetrical, No edema, normal temperature, normal color Peripheral Pulses: within normal limits - Abdominal General gastrointestinal: soft, non-tender, non-distended, normal bowel sounds - Integumentary Integumentary: Present: clear, warm, dry - Psychiatric Psychiatric: agitated, other (Extremely limited insight; combative; poor memory/historian) - Neurologic Neurologic: CNII-XII intact, moves all extremities - Allied Health Allied health notes reviewed: nursing Results - Labs CBC & Chem 7: 09/26/21 05:08 09/27/21 00:27 Labs: Laboratory Last Values WBC 4.7 K/mm3 (4.5-11.0) 09/26/21 05:08 RBC 4.64 M/mm3 (3.65-5.03) 09/26/21 05:08 Hgb 14.2 gm/dl (11.8-15.2) 09/26/21 05:08 Hct 40.6 % (35.5-45.6) 09/26/21 05:08 MCV 88 fl (84-94) 09/26/21 05:08 MCH 31 pg (28-32) 09/26/21 05:08 MCHC 35 % (32-34) H 09/26/21 05:08 RDW 13.1 % (13.2-15.2) L 09/26/21 05:08 Plt Count 175 K/mm3 (140-440) 09/26/21 05:08 Lymph % (Auto) 26.4 % (13.4-35.0) 09/26/21 05:08 Ransom % (Auto) 10.3 % (0.0-7.3) H 09/26/21 05:08 Eos % (Auto) 3.2 % (0.0-4.3) 09/26/21 05:08 Baso % (Auto) 0.6 % (0.0-1.8) 09/26/21 05:08 Lymph # (Auto) 1.2 K/mm3 (1.2-5.4) 09/26/21 05:08 Ransom # (Auto) 0.5 K/mm3 (0.0-0.8) 09/26/21 05:08 Eos # (Auto) 0.2 K/mm3 (0.0-0.4) 09/26/21 05:08 Baso # (Auto) 0.0 K/mm3 (0.0-0.1) 09/26/21 05:08 Add Manual Diff Complete 09/25/21 06:46 Seg Neutrophils % 59.5 % (40.0-70.0) 09/26/21 05:08 Nucleated RBC % Not Reportable 09/25/21 06:46 Seg Neutrophils # 2.8 K/mm3 (1.8-7.7) 09/26/21 05:08 WBC Morphology Not Reportable 09/25/21 06:46 Hypersegmented Neuts Not Reportable 09/25/21 06:46 Hyposegmented Neuts Not Reportable 09/25/21 06:46 Hypogranular Neuts Not Reportable 09/25/21 06:46 Smudge Cells Not Reportable 09/25/21 06:46 Toxic Granulation Not Reportable 09/25/21 06:46 Toxic Vacuolation Not Reportable 09/25/21 06:46 Dohle Bodies Not Reportable 09/25/21 06:46 Pelger-Huet Anomaly Not Reportable 09/25/21 06:46 Jez Rods Not Reportable 09/25/21 06:46 Platelet Estimate Not Reportable 09/25/21 06:46 Clumped Platelets Not Reportable 09/25/21 06:46 Plt Clumps, EDTA Not Reportable 09/25/21 06:46 Large Platelets Not Reportable 09/25/21 06:46 Giant Platelets Not Reportable 09/25/21 06:46 Platelet Satelliting Not Reportable 09/25/21 06:46 Plt Morphology Comment Not Reportable 09/25/21 06:46 RBC Morphology Not Reportable 09/25/21 06:46 Dimorphic RBCs Not Reportable 09/25/21 06:46 Polychromasia Not Reportable 09/25/21 06:46 Hypochromasia Not Reportable 09/25/21 06:46 Poikilocytosis Not Reportable 09/25/21 06:46 Anisocytosis Not Reportable 09/25/21 06:46 Microcytosis Not Reportable 09/25/21 06:46 Macrocytosis Not Reportable 09/25/21 06:46 Spherocytes Not Reportable 09/25/21 06:46 Pappenheimer Bodies Not Reportable 09/25/21 06:46 Sickle Cells Not Reportable 09/25/21 06:46 Target Cells Not Reportable 09/25/21 06:46 Tear Drop Cells Not Reportable 09/25/21 06:46 Ovalocytes Not Reportable 09/25/21 06:46 Helmet Cells Not Reportable 09/25/21 06:46 [place] Bodies Not Reportable 09/25/21 06:46 Ferdinand Rings Not Reportable 09/25/21 06:46 Zafar Cells Not Reportable 09/25/21 06:46 Bite Cells Not Reportable 09/25/21 06:46 Crenated Cell Not Reportable 09/25/21 06:46 Elliptocytes Not Reportable 09/25/21 06:46 Acanthocytes (Spur) Not Reportable 09/25/21 06:46 Rouleaux Not Reportable 09/25/21 06:46 Hemoglobin C Crystals Not Reportable 09/25/21 06:46 Schistocytes Not Reportable 09/25/21 06:46 Malaria parasites Not Reportable 09/25/21 06:46 Ike Bodies Not Reportable 09/25/21 06:46 Hem Pathologist Commnt No 09/25/21 06:46 ABG pH 7.421 pH Units (7.350-7.450) 09/25/21 09:13 ABG pCO2 32.7 mm Hg 09/25/21 09:13 ABG pO2 80.7 mm Hg (80.0-90.0) 09/25/21 09:13 ABG HCO3 20.8 mmol/L (20.0-26.0) 09/25/21 09:13 ABG O2 Saturation 96.2 % (95.0-99.0) 09/25/21 09:13 ABG O2 Content 18.1 (0.0-44) 09/25/21 09:13 ABG Base Excess -2.8 mmol/L (-2.0-3.0) L 09/25/21 09:13 ABG Hemoglobin 13.7 gm/dl (14.0-18.0) L 09/25/21 09:13 ABG Carboxyhemoglobin 1.8 % (0.0-5.0) 09/25/21 09:13 ABG Methemoglobin 0.6 % (0.0-1.5) 09/25/21 09:13 VBG pH 7.350 (7.320-7.420) 09/25/21 08:15 Oxyhemoglobin 93.9 % (95.0-99.0) L 09/25/21 09:13 FiO2 21 % 09/25/21 09:13 Sodium 129 mmol/L (137-145) L 09/27/21 00:27 Potassium 3.6 mmol/L (3.6-5.0) 09/27/21 00:27 Chloride 93.7 mmol/L (98-107) L 09/27/21 00:27 Carbon Dioxide 23 mmol/L (22-30) 09/27/21 00:27 Anion Gap 16 mmol/L 09/27/21 00:27 BUN 11 mg/dL (9-20) 09/27/21 00:27 Creatinine 0.9 mg/dL (0.8-1.3) 09/27/21 00:27 Estimated GFR > 60 ml/min 09/27/21 00:27 BUN/Creatinine Ratio 12 % 09/27/21 00:27 Glucose 167 mg/dL (75-100) H 09/27/21 00:27 POC Glucose 151 mg/dL (70-105) H 09/25/21 06:29 Calcium 9.5 mg/dL (8.4-10.2) 09/27/21 00:27 Phosphorus 3.80 mg/dL (2.5-4.5) 09/26/21 05:08 Magnesium 1.60 mg/dL (1.7-2.3) L 09/26/21 05:08 Total Bilirubin 0.80 mg/dL (0.1-1.2) 09/25/21 08:10 AST 78 units/L (5-40) H 09/25/21 08:10 ALT 48 units/L (7-56) 09/25/21 08:10 Alkaline Phosphatase 69 units/L (35-129) 09/25/21 08:10 Total Protein 9.1 g/dL (6.3-8.2) H 09/25/21 08:10 Albumin 4.5 g/dL (3.9-5) 09/25/21 08:10 Albumin/Globulin Ratio 1.0 % 09/25/21 08:10 Urine Color Straw (Yellow) 09/25/21 12:10 Urine Turbidity Clear (Clear) 09/25/21 12:10 Urine pH 6.0 (5.0-7.0) 09/25/21 12:10 Ur Specific Martin 1.004 (1.003-1.030) 09/25/21 12:10 Urine Protein <15 mg/dl mg/dL (Negative) 09/25/21 12:10 Urine Glucose (UA) Neg mg/dL (Negative) 09/25/21 12:10 Urine Ketones Neg mg/dL (Negative) 09/25/21 12:10 Urine Blood Sm (Negative) 09/25/21 12:10 Urine Nitrite Neg (Negative) 09/25/21 12:10 Urine Bilirubin Neg (Negative) 09/25/21 12:10 Urine Urobilinogen < 2.0 mg/dL (<2.0) 09/25/21 12:10 Ur Leukocyte Esterase Neg (Negative) 09/25/21 12:10 Urine WBC (Auto) < 1.0 /HPF (0.0-6.0) 09/25/21 12:10 Urine RBC (Auto) < 1.0 /HPF (0.0-6.0) 09/25/21 12:10 Urine Sodium 29 mmol/L 09/25/21 12:10 Urine Opiates Screen Negative 09/25/21 12:10 Urine Methadone Screen Negative 09/25/21 12:10 Ur Barbiturates Screen Negative 09/25/21 12:10 Ur Phencyclidine Scrn Negative 09/25/21 12:10 Ur Amphetamines Screen Negative 09/25/21 12:10 U Benzodiazepines Scrn Negative 09/25/21 12:10 Urine Cocaine Screen Negative 09/25/21 12:10 U Marijuana (THC) Screen Negative 09/25/21 12:10 Drugs of Abuse Note Disclamer 09/25/21 12:10 Plasma/Serum Alcohol 0.05 % (0-0.07) 09/25/21 06:46 Grady/IV: Voiding Method Urinal Active Medications - Current Medications Current Medications: Generic Name Dose Route Start Last Admin Trade Name Freq PRN Reason Stop Dose Admin Acetaminophen 650 mg 09/25/21 10:30 Acetaminophen 325 Mg Tab PO Q4H PRN Pain MILD(1-3)/Fever >100.5/MILLER Levetiracetam 500 mg/ Dextrose 105 mls @ 400 mls/hr 09/25/21 22:00 09/27/21 09:34 IV 400 mls/hr Q12HR TOMMY Administration Thiamine HCl 100 mg/ Sodium 51 mls @ 100 mls/hr 09/26/21 10:00 09/27/21 09:35 Chloride IV 100 mls/hr QDAY TOMMY Administration Folic Acid 1 mg/ Sodium 50.2 mls @ 200.8 mls/hr 09/25/21 16:00 09/27/21 09:46 Chloride IV 200.8 mls/hr QDAY TOMMY Administration Sodium Chloride 1,000 mls @ 84 mls/hr 09/26/21 11:00 09/27/21 05:51 Nacl 0.9% 1000 Ml IV 84 mls/hr DIRECT TOMMY Administration Lorazepam 2 mg 09/25/21 09:22 09/27/21 16:04 Lorazepam 2 Mg/Ml Vial IV 2 mg Q1HR PRN Administration CIWA-Ar 8-15 Lorazepam 4 mg 09/25/21 09:22 Lorazepam 2 Mg/Ml Vial IV Q1HR PRN CIWA-Ar 16-25 Morphine Sulfate 4 mg 09/25/21 11:00 Morphine 4 Mg/1 Ml Inj IV Q4H PRN Pain , Severe (7-10) Ondansetron HCl 4 mg 09/25/21 11:00 Ondansetron 4 Mg/2 Ml Inj IV Q8H PRN Nausea And Vomiting Oxycodone/Acetaminophen 1 tab 09/25/21 11:00 09/27/21 09:36 Oxycodone /Acetaminophen 5-325mg Tab PO 1 tab Q6H PRN Administration Pain, Moderate (4-6) Sodium Chloride 10 ml 09/25/21 11:00 09/27/21 09:35 Sodium Chloride 0.9% 10 Ml Flush Syringe IV 10 ml BID TOMMY Administration Sodium Chloride 10 ml 09/25/21 11:00 Sodium Chloride 0.9% 10 Ml Flush Syringe IV PRN PRN LINE FLUSH Sodium Chloride 2 gm 09/27/21 10:00 09/27/21 13:02 Sodium Chloride 1 Gm Tab PO 2 gm TID TOMMY Administration
[2021-09-27] MEDS ORDERED: LORazepam 2 MG/ML VIAL IV PRN (17:13)
[2021-09-28 06:08] LABS: BUN/Creatinine Ratio 11; Blood Urea Nitrogen 9 mg/dL (9-20); Calcium 9.6 mg/dL (8.4-10.2); Hemolysis Index 3
--- NOTE | 2021-09-28 07:39 | Progress Note ---
Assessment and Plan Impression: Severe hyponatremia, duration unclear History of seizure disorder Alcohol dependence delirium volume depletion Plan: Na 133 this am and stable, likely chronic with history of etoh abuse, Na 130 is the goal added salt tabs and NS follow up lytes Check BMP every 24hours Monitor neurologic status closely If additional seizures noted or sodium rises above goal please notify Strict input and output CIWA protocol will follow labs peripherally rec cont sodium chloride tabs 1 gram tid at discharge and follow up office 1 week stable for dc from renal standpoint Subjective Date of service: 09/28/21 Principal diagnosis: hyponatremia Interval history: resting in bed today Objective - Exam Narrative Exam: GENERAL: Thin male. Lying in bed, no acute distress. HEENT: Chronic facial rash. CHEST/LUNGS: CTAB on room air HEART/CARDIOVASCULAR: Tachycardic. No murmur, rubs or gallops appreciated. ABDOMEN: +BS. NT/ND. NEURO: No focal motor deficit. Follows all commands. MUSCULOSKELETAL: No joint effusion EXTREMITIES: No cyanosis, clubbing or edema. PSYCH: Cooperative. - Vital Signs Vital signs: Vital Signs - 12hr 09/27/21 09/27/21 09/28/21 20:03 22:00 02:21 Temperature 98.3 F Pulse Rate 118 H 77 Respiratory 20 Rate Blood Pressure 119/90 Blood Pressure [Left] O2 Sat by Pulse 98 97 Oximetry 09/28/21 04:45 Temperature 98.4 F Pulse Rate 107 H Respiratory 20 Rate Blood Pressure Blood Pressure 122/96 [Left] O2 Sat by Pulse 99 Oximetry - Lab 09/26/21 05:08 09/28/21 05:09 Most recent lab results ABG pH 7.421 pH Units (7.350-7.450) 09/25/21 09:13 ABG pCO2 32.7 mm Hg 09/25/21 09:13 ABG pO2 80.7 mm Hg (80.0-90.0) 09/25/21 09:13 ABG HCO3 20.8 mmol/L (20.0-26.0) 09/25/21 09:13 ABG O2 Saturation 96.2 % (95.0-99.0) 09/25/21 09:13 Calcium 9.6 mg/dL (8.4-10.2) 09/28/21 05:09 Phosphorus 4.10 mg/dL (2.5-4.5) 09/28/21 05:09 Magnesium 1.10 mg/dL (1.7-2.3) L 09/28/21 05:09 Urine Sodium 29 mmol/L 09/25/21 12:10 Medications & Allergies - Medications Allergies/Adverse Reactions: Allergies No Known Allergies Allergy (Verified 09/27/21 11:16) Home Medications: Home Medications Medication Instructions Recorded Confirmed Last Taken Type levETIRAcetam [Keppra TAB] 500 mg PO BID #60 tablet 06/17/21 09/27/21 Unknown Rx Active Medications: Generic Name Dose Route Start Last Admin Trade Name Freq PRN Reason Stop Dose Admin Acetaminophen 650 mg 09/25/21 10:30 Acetaminophen 325 Mg Tab PO Q4H PRN Pain MILD(1-3)/Fever >100.5/MILLER Levetiracetam 500 mg/ Dextrose 105 mls @ 400 mls/hr 09/25/21 22:00 09/27/21 21:52 IV 400 mls/hr Q12HR TOMMY Administration Thiamine HCl 100 mg/ Sodium 51 mls @ 100 mls/hr 09/26/21 10:00 09/27/21 09:35 Chloride IV 100 mls/hr QDAY TOMMY Administration Folic Acid 1 mg/ Sodium 50.2 mls @ 200.8 mls/hr 09/25/21 16:00 09/27/21 09:46 Chloride IV 200.8 mls/hr QDAY TOMMY Administration Sodium Chloride 1,000 mls @ 84 mls/hr 09/26/21 11:00 09/27/21 05:51 Nacl 0.9% 1000 Ml IV 84 mls/hr DIRECT TOMMY Administration Lorazepam 2 mg 09/25/21 09:22 09/27/21 16:04 Lorazepam 2 Mg/Ml Vial IV 2 mg Q1HR PRN Administration CIWA-Ar 8-15 Lorazepam 4 mg 09/25/21 09:22 Lorazepam 2 Mg/Ml Vial IV Q1HR PRN CIWA-Ar 16-25 Lorazepam 2 mg 09/27/21 17:13 Lorazepam 2 Mg/Ml Vial IV ONCE PRN Agitation Morphine Sulfate 4 mg 09/25/21 11:00 Morphine 4 Mg/1 Ml Inj IV Q4H PRN Pain , Severe (7-10) Ondansetron HCl 4 mg 09/25/21 11:00 Ondansetron 4 Mg/2 Ml Inj IV Q8H PRN Nausea And Vomiting Oxycodone/Acetaminophen 1 tab 09/25/21 11:00 09/27/21 09:36 Oxycodone /Acetaminophen 5-325mg Tab PO 1 tab Q6H PRN Administration Pain, Moderate (4-6) Sodium Chloride 10 ml 09/25/21 11:00 09/27/21 21:53 Sodium Chloride 0.9% 10 Ml Flush Syringe IV 10 ml BID TOMMY Administration Sodium Chloride 10 ml 09/25/21 11:00 Sodium Chloride 0.9% 10 Ml Flush Syringe IV PRN PRN LINE FLUSH Sodium Chloride 2 gm 09/27/21 10:00 09/27/21 21:53 Sodium Chloride 1 Gm Tab PO 2 gm TID TOMMY Administration
[2021-09-28] MEDS ORDERED: POTASSIUM CHLORIDE ER 20 MEQ TAB PO SCH (08:00)
[2021-09-28] MEDS ORDERED: MAGNESIUM SULFATE 2 GM/50 ML BAG IV SCH (08:00)
[2021-09-28] MEDS: levETIRAcetam 500 MG in DEXTROSE 5% IN WATER 100 ML IV SCH ×2 (10:51→22:17)
[2021-09-28] MEDS: SODIUM CHLORIDE 1 GM TAB PO SCH ×3 (10:51→22:16)
[2021-09-28] MEDS: FOLIC ACID 1 MG in SODIUM CHLORIDE 0.9% 50 ML IV SCH (10:52)
[2021-09-28] MEDS: THIAMINE 100 MG in SODIUM CHLORIDE 0.9% 50 ML IV SCH (10:52)
--- NOTE | 2021-09-28 13:40 | Magnetic Resonance Report ---
MRI BRAIN 09/28/2021 INDICATION / CLINICAL INFORMATION: Seizure disorder. TECHNIQUE: Multiplanar, multisequence MR images of the brain were obtained. COMPARISON: CT brain 09/25/2021 FINDINGS: BRAIN / INTRACRANIAL CONTENTS: Unenhanced and enhanced MR images of the brain demonstrate no evidence of acute abnormality. Ventricles and sulci are slightly prominent in size, consistent with some diffuse cerebral atrophy, m ore than is typically seen in a patient of this age. There is focal area of chronic cortical encephalomalacia in the left frontal lobe. There is no evidence of acute ischemic injury, hemorrhage, or mass. There are no abnormal extra-axial fluid collections. Postcontrast images demonstrate no abnormal contrast enhancement. EXTRACRANIAL: Unremarkable CRANIOCERVICAL JUNCTION: No significant abnormality. VASCULAR FLOW-VOIDS: No significant abnormality. IMPRESSION: No acute abnormality. Diffuse cerebral atrophy. Old focal left frontal cortical encephalomalacia. Signer Name: Jorje Cross MD Signed: 09/28/2021 1:36 PM Workstation Name: [id number]
--- NOTE | 2021-09-28 14:46 | Progress Note ---
Assessment and Plan Assessment and plan: Patient is a 55-year-old male history of seizure disorder noncompliant with medication who was found down on the side of the road and was brought to the ED. Observed seizures while in the ED. Also found to have a sodium of 120. Admitted to medicine for further care. Currently alert and oriented x3. #Syncope-resolved -Patient found down on [place], has no recollection of events -CT head negative; UDS negative -Echocardiogram: mild diastolic dysfunction with normal LVEF -EKG sinus tachycardia; telemetry -could be secondary to unwitnessed seizure versus arrhythmia #Seizure disorder -hx of seizure disorder -continue Keppra 500 mg twice daily -Neurology consulted, assistance appreciated -Pending MRI brain with gadolinium. Original attempt on 09/26/2021 was unsuccessful due to patient refusing and not being able to cooperate. Pending repeat on 09/28/2021. Ordering IV Ativan 2 mg x 1 prior to MRI. #Hyponatremia-resolved -Na 120 -> 129 after 3% saline-->133 -received 1 dose of DDAVP -q12h BMPs, salt tabs -Nephrology consulted, recs appreciated -Likely secondary to excessive alcohol intake #Hypomagnesemia -will replete and monitor #Alcohol dependence #Alcohol cessation counseling -Patient reports drinking 1-2 beers daily along with multiple shots of liquor -[facility] protocol while inpatient -Thiamine and folate supplementation -Counseled on detrimental effects of alcohol dependence including lowering of seizure threshold. Patient voiced understanding, but is very defensive about drinking habits. -Time: +10 minutes #Tobacco dependence #Tobacco cessation counseling -Patient smokes 1 pack of cigarettes per week -Counseled about tobacco cessation, patient not interested at this time. -Time: +10 minutes #Advanced care planning -Disease education conducted, care plan discussed, diagnoses discussed, prog nosis discussed, and patient acknowledges understanding with care plan -Time: +20 minutes Disposition Plan: Continue medical management. Total Time Spent with Patient (Minutes): 40 minutes History Interval history: No acute events overnight. Hospitalist Physical - Constitutional Vitals: Temp Pulse Resp BP Pulse Ox 98.6 F 85 18 144/102 98 09/28/21 08:28 09/28/21 11:00 09/28/21 08:28 09/28/21 08:28 09/28/21 11:00 General appearance: Present: no acute distress, well-nourished - EENT Eyes: Present: PERRL, EOM intact ENT: hearing intact, clear oral mucosa, dentition normal - Neck Neck: Present: supple, normal ROM - Respiratory Respiratory effort: normal Respiratory: bilateral: CTA - Cardiovascular Rhythm: regular Heart Sounds: Present: S1 & S2 - Extremities Extremities: no ischemia, pulses intact, pulses symmetrical, No edema, normal temperature, normal color Peripheral Pulses: within normal limits - Abdominal General gastrointestinal: soft, non-tender, non-distended, normal bowel sounds - Integumentary Integumentary: Present: clear, warm, dry - Psychiatric Psychiatric: agitated, other (Little insight. Gaps in memory. Mildly combative.) - Neurologic Neurologic: CNII-XII intact, moves all extremities - Allied Health Allied health notes reviewed: nursing Results - Labs CBC & Chem 7: 09/26/21 05:08 09/28/21 05:09 Labs: Laboratory Last Values WBC 4.7 K/mm3 (4.5-11.0) 09/26/21 05:08 RBC 4.64 M/mm3 (3.65-5.03) 09/26/21 05:08 Hgb 14.2 gm/dl (11.8-15.2) 09/26/21 05:08 Hct 40.6 % (35.5-45.6) 09/26/21 05:08 MCV 88 fl (84-94) 09/26/21 05:08 MCH 31 pg (28-32) 09/26/21 05:08 MCHC 35 % (32-34) H 09/26/21 05:08 RDW 13.1 % (13.2-15.2) L 09/26/21 05:08 Plt Count 175 K/mm3 (140-440) 09/26/21 05:08 Lymph % (Auto) 26.4 % (13.4-35.0) 09/26/21 05:08 [place] % (Auto) 10.3 % (0.0-7.3) H 09/26/21 05:08 Eos % (Auto) 3.2 % (0.0-4.3) 09/26/21 05:08 Baso % (Auto) 0.6 % (0.0-1.8) 09/26/21 05:08 Lymph # (Auto) 1.2 K/mm3 (1.2-5.4) 09/26/21 05:08 [place] # (Auto) 0.5 K/mm3 (0.0-0.8) 09/26/21 05:08 Eos # (Auto) 0.2 K/mm3 (0.0-0.4) 09/26/21 05:08 Baso # (Auto) 0.0 K/mm3 (0.0-0.1) 09/26/21 05:08 Add Manual Diff Complete 09/25/21 06:46 Seg Neutrophils % 59.5 % (40.0-70.0) 09/26/21 05:08 Nucleated RBC % Not Reportable 09/25/21 06:46 Seg Neutrophils # 2.8 K/mm3 (1.8-7.7) 09/26/21 05:08 WBC Morphology Not Reportable 09/25/21 06:46 Hypersegmented Neuts Not Reportable 09/25/21 06:46 Hyposegmented Neuts Not Reportable 09/25/21 06:46 Hypogranular Neuts Not Reportable 09/25/21 06:46 Smudge Cells Not Reportable 09/25/21 06:46 Toxic Granulation Not Reportable 09/25/21 06:46 Toxic Vacuolation Not Reportable 09/25/21 06:46 Dohle Bodies Not Reportable 09/25/21 06:46 Pelger-Huet Anomaly Not Reportable 09/25/21 06:46 Jez Rods Not Reportable 09/25/21 06:46 Platelet Estimate Not Reportable 09/25/21 06:46 Clumped Platelets Not Reportable 09/25/21 06:46 Plt Clumps, EDTA Not Reportable 09/25/21 06:46 Large Platelets Not Reportable 09/25/21 06:46 Giant Platelets Not Reportable 09/25/21 06:46 Platelet Satelliting Not Reportable 09/25/21 06:46 Plt Morphology Comment Not Reportable 09/25/21 06:46 RBC Morphology Not Reportable 09/25/21 06:46 Dimorphic RBCs Not Reportable 09/25/21 06:46 Polychromasia Not Reportable 09/25/21 06:46 Hypochromasia Not Reportable 09/25/21 06:46 Poikilocytosis Not Reportable 09/25/21 06:46 Anisocytosis Not Reportable 09/25/21 06:46 Microcytosis Not Reportable 09/25/21 06:46 Macrocytosis Not Reportable 09/25/21 06:46 Spherocytes Not Reportable 09/25/21 06:46 Pappenheimer Bodies Not Reportable 09/25/21 06:46 Sickle Cells Not Reportable 09/25/21 06:46 Target Cells Not Reportable 09/25/21 06:46 Tear Drop Cells Not Reportable 09/25/21 06:46 Ovalocytes Not Reportable 09/25/21 06:46 Helmet Cells Not Reportable 09/25/21 06:46 [place]-Epps Bodies Not Reportable 09/25/21 06:46 [place] Rings Not Reportable 09/25/21 06:46 Zafar Cells Not Reportable 09/25/21 06:46 Bite Cells Not Reportable 09/25/21 06:46 Crenated Cell Not Reportable 09/25/21 06:46 Elliptocytes Not Reportable 09/25/21 06:46 Acanthocytes (Spur) Not Reportable 09/25/21 06:46 Rouleaux Not Reportable 09/25/21 06:46 Hemoglobin C Crystals Not Reportable 09/25/21 06:46 Schistocytes Not Reportable 09/25/21 06:46 Malaria parasites Not Reportable 09/25/21 06:46 Ike Bodies Not Reportable 09/25/21 06:46 Hem Pathologist Commnt No 09/25/21 06:46 ABG pH 7.421 pH Units (7.350-7.450) 09/25/21 09:13 ABG pCO2 32.7 mm Hg 09/25/21 09:13 ABG pO2 80.7 mm Hg (80.0-90.0) 09/25/21 09:13 ABG HCO3 20.8 mmol/L (20.0-26.0) 09/25/21 09:13 ABG O2 Saturation 96.2 % (95.0-99.0) 09/25/21 09:13 ABG O2 Content 18.1 (0.0-44) 09/25/21 09:13 ABG Base Excess -2.8 mmol/L (-2.0-3.0) L 09/25/21 09:13 ABG Hemoglobin 13.7 gm/dl (14.0-18.0) L 09/25/21 09:13 ABG Carboxyhemoglobin 1.8 % (0.0-5.0) 09/25/21 09:13 ABG Methemoglobin 0.6 % (0.0-1.5) 09/25/21 09:13 VBG pH 7.350 (7.320-7.420) 09/25/21 08:15 Oxyhemoglobin 93.9 % (95.0-99.0) L 09/25/21 09:13 FiO2 21 % 09/25/21 09:13 Sodium 133 mmol/L (137-145) L 09/28/21 05:09 Potassium 3.5 mmol/L (3.6-5.0) L 09/28/21 05:09 Chloride 97.5 mmol/L (98-107) L 09/28/21 05:09 Carbon Dioxide 23 mmol/L (22-30) 09/28/21 05:09 Anion Gap 16 mmol/L 09/28/21 05:09 BUN 9 mg/dL (9-20) 09/28/21 05:09 Creatinine 0.8 mg/dL (0.8-1.3) 09/28/21 05:09 Estimated GFR > 60 ml/min 09/28/21 05:09 BUN/Creatinine Ratio 11 % 09/28/21 05:09 Glucose 109 mg/dL (75-100) H 09/28/21 05:09 POC Glucose 151 mg/dL (70-105) H 09/25/21 06:29 Calcium 9.6 mg/dL (8.4-10.2) 09/28/21 05:09 Phosphorus 4.10 mg/dL (2.5-4.5) 09/28/21 05:09 Magnesium 1.10 mg/dL (1.7-2.3) L 09/28/21 05:09 Total Bilirubin 0.80 mg/dL (0.1-1.2) 09/25/21 08:10 AST 78 units/L (5-40) H 09/25/21 08:10 ALT 48 units/L (7-56) 09/25/21 08:10 Alkaline Phosphatase 69 units/L (35-129) 09/25/21 08:10 Total Protein 9.1 g/dL (6.3-8.2) H 09/25/21 08:10 Albumin 4.5 g/dL (3.9-5) 09/25/21 08:10 Albumin/Globulin Ratio 1.0 % 09/25/21 08:10 Urine Color Straw (Yellow) 09/25/21 12:10 Urine Turbidity Clear (Clear) 09/25/21 12:10 Urine pH 6.0 (5.0-7.0) 09/25/21 12:10 Ur Specific [place] 1.004 (1.003-1.030) 09/25/21 12:10 Urine Protein <15 mg/dl mg/dL (Negative) 09/25/21 12:10 Urine Glucose (UA) Neg mg/dL (Negative) 09/25/21 12:10 Urine Ketones Neg mg/dL (Negative) 09/25/21 12:10 Urine Blood Sm (Negative) 09/25/21 12:10 Urine Nitrite Neg (Negative) 09/25/21 12:10 Urine Bilirubin Neg (Negative) 09/25/21 12:10 Urine Urobilinogen < 2.0 mg/dL (<2.0) 09/25/21 12:10 Ur Leukocyte Esterase Neg (Negative) 09/25/21 12:10 Urine WBC (Auto) < 1.0 /HPF (0.0-6.0) 09/25/21 12:10 Urine RBC (Auto) < 1.0 /HPF (0.0-6.0) 09/25/21 12:10 Urine Sodium 29 mmol/L 09/25/21 12:10 Urine Opiates Screen Negative 09/25/21 12:10 Urine Methadone Screen Negative 09/25/21 12:10 Ur Barbiturates Screen Negative 09/25/21 12:10 Ur Phencyclidine Scrn Negative 09/25/21 12:10 Ur Amphetamines Screen Negative 09/25/21 12:10 U Benzodiazepines Scrn Negative 09/25/21 12:10 Urine Cocaine Screen Negative 09/25/21 12:10 U Marijuana (THC) Screen Negative 09/25/21 12:10 Drugs of Abuse Note Disclamer 09/25/21 12:10 Plasma/Serum Alcohol 0.05 % (0-0.07) 09/25/21 06:46 Grady/IV: Voiding Method Toilet Active Medications - Current Medications Current Medications: Generic Name Dose Route Start Last Admin Trade Name Freq PRN Reason Stop Dose Admin Acetaminophen 650 mg 09/25/21 10:30 Acetaminophen 325 Mg Tab PO Q4H PRN Pain MILD(1-3)/Fever >100.5/MILLER Levetiracetam 500 mg/ Dextrose 105 mls @ 400 mls/hr 09/25/21 22:00 09/28/21 10:51 IV 400 mls/hr Q12HR TOMMY Administration Thiamine HCl 100 mg/ Sodium 51 mls @ 100 mls/hr 09/26/21 10:00 09/28/21 10:52 Chloride IV 100 mls/hr QDAY TOMMY Administration Folic Acid 1 mg/ Sodium 50.2 mls @ 200.8 mls/hr 09/25/21 16:00 09/28/21 10:52 Chloride IV 200.8 mls/hr QDAY TOMMY Administration Sodium Chloride 1,000 mls @ 84 mls/hr 09/26/21 11:00 09/27/21 05:51 Nacl 0.9% 1000 Ml IV 84 mls/hr DIRECT TOMMY Administration Lorazepam 2 mg 09/25/21 09:22 09/27/21 16:04 Lorazepam 2 Mg/Ml Vial IV 2 mg Q1HR PRN Administration CIWA-Ar 8-15 Lorazepam 4 mg 09/25/21 09:22 Lorazepam 2 Mg/Ml Vial IV Q1HR PRN CIWA-Ar 16-25 Lorazepam 2 mg 09/27/21 17:13 09/28/21 11:09 Lorazepam 2 Mg/Ml Vial IV 2 mg ONCE PRN Administration Agitation Morphine Sulfate 4 mg 09/25/21 11:00 Morphine 4 Mg/1 Ml Inj IV Q4H PRN Pain , Severe (7-10) Ondansetron HCl 4 mg 09/25/21 11:00 Ondansetron 4 Mg/2 Ml Inj IV Q8H PRN Nausea And Vomiting Oxycodone/Acetaminophen 1 tab 09/25/21 11:00 09/27/21 09:36 Oxycodone /Acetaminophen 5-325mg Tab PO 1 tab Q6H PRN Administration Pain, Moderate (4-6) Sodium Chloride 10 ml 09/25/21 11:00 09/28/21 10:52 Sodium Chloride 0.9% 10 Ml Flush Syringe IV 10 ml BID TOMMY Administration Sodium Chloride 10 ml 09/25/21 11:00 Sodium Chloride 0.9% 10 Ml Flush Syringe IV PRN PRN LINE FLUSH Sodium Chloride 2 gm 09/27/21 10:00 09/28/21 10:51 Sodium Chloride 1 Gm Tab PO 2 gm TID TOMMY Administration
[2021-09-28] MEDS: SODIUM CHLORIDE 0.9% 1000 ML 1,000 ML IV SCH (22:17)
[2021-09-29 06:22] LABS: Blood Urea Nitrogen 9 mg/dL (9-20); Calcium 9.5 mg/dL (8.4-10.2); Hemolysis Index 2
[2021-09-29 06:23] LABS: BUN/Creatinine Ratio 13
[2021-09-29] MEDS ORDERED: MAGNESIUM SULFATE 2 GM/50 ML BAG IV ONE (09:00)
--- NOTE | 2021-09-29 10:13 | Progress Note ---
Assessment and Plan Impression: Severe hyponatremia, duration unclear History of seizure disorder Alcohol dependence delirium volume depletion Plan: Na 131 this am and stable, likely chronic with history of etoh abuse, Na 130 is the goal added salt tabs and NS follow up lytes Check BMP every 24hours Monitor neurologic status closely If additional seizures noted or sodium rises above goal please notify Strict input and output CIWA protocol will follow labs peripherally rec cont sodium chloride tabs 1 gram tid at discharge and follow up office 1 week stable for dc from renal standpoint Subjective Date of service: 09/29/21 Principal diagnosis: hyponatremia Interval history: resting in bed today Objective - Exam Narrative Exam: GENERAL: Thin male. Lying in bed, no acute distress. HEENT: Chronic facial rash. CHEST/LUNGS: CTAB on room air HEART/CARDIOVASCULAR: Tachycardic. No murmur, rubs or gallops appreciated. ABDOMEN: +BS. NT/ND. NEURO: No focal motor deficit. Follows all commands. MUSCULOSKELETAL: No joint effusion EXTREMITIES: No cyanosis, clubbing or edema. PSYCH: Cooperative. - Vital Signs Vital signs: Vital Signs - 12hr 09/28/21 09/29/21 09/29/21 23:09 03:46 08:36 Temperature 98.2 F 98.2 F Pulse Rate 96 H 87 Respiratory 20 18 Rate Blood Pressure 134/93 Blood Pressure 120/74 [Left] O2 Sat by Pulse 98 98 97 Oximetry - Lab 09/26/21 05:08 09/29/21 05:37 Most recent lab results ABG pH 7.421 pH Units (7.350-7.450) 09/25/21 09:13 ABG pCO2 32.7 mm Hg 09/25/21 09:13 ABG pO2 80.7 mm Hg (80.0-90.0) 09/25/21 09:13 ABG HCO3 20.8 mmol/L (20.0-26.0) 09/25/21 09:13 ABG O2 Saturation 96.2 % (95.0-99.0) 09/25/21 09:13 Calcium 9.5 mg/dL (8.4-10.2) 09/29/21 05:37 Phosphorus 3.50 mg/dL (2.5-4.5) 09/29/21 05:37 Magnesium 1.00 mg/dL (1.7-2.3) L 09/29/21 05:37 Urine Sodium 29 mmol/L 09/25/21 12:10 Medications & Allergies - Medications Allergies/Adverse Reactions: Allergies No Known Allergies Allergy (Verified 09/27/21 11:16) Home Medications: Home Medications Medication Instructions Recorded Confirmed Last Taken Type levETIRAcetam [Keppra TAB] 500 mg PO BID #60 tablet 06/17/21 09/27/21 Unknown Rx Active Medications: Generic Name Dose Route Start Last Admin Trade Name Freq PRN Reason Stop Dose Admin Acetaminophen 650 mg 09/25/21 10:30 Acetaminophen 325 Mg Tab PO Q4H PRN Pain MILD(1-3)/Fever >100.5/MILLER Levetiracetam 500 mg/ Dextrose 105 mls @ 400 mls/hr 09/25/21 22:00 09/28/21 22:17 IV 400 mls/hr Q12HR TOMMY Administration Thiamine HCl 100 mg/ Sodium 51 mls @ 100 mls/hr 09/26/21 10:00 09/28/21 10:52 Chloride IV 100 mls/hr QDAY TOMMY Administration Folic Acid 1 mg/ Sodium 50.2 mls @ 200.8 mls/hr 09/25/21 16:00 09/28/21 10:52 Chloride IV 200.8 mls/hr QDAY TOMMY Administration Magnesium Sulfate 2 gm in 50 mls @ 25 mls/hr 09/29/21 09:00 Magnesium Sulfate 2gm/50ml IV 09/29/21 10:59 ONCE@0900 ONE Lorazepam 2 mg 09/25/21 09:22 09/27/21 16:04 Lorazepam 2 Mg/Ml Vial IV 2 mg Q1HR PRN Administration CIWA-Ar 8-15 Lorazepam 4 mg 09/25/21 09:22 Lorazepam 2 Mg/Ml Vial IV Q1HR PRN CIWA-Ar 16-25 Lorazepam 2 mg 09/27/21 17:13 09/28/21 11:09 Lorazepam 2 Mg/Ml Vial IV 2 mg ONCE PRN Administration Agitation Magnesium Oxide 400 mg 09/29/21 11:00 Magnesium Oxide 400 Mg Tab PO QDAY TOMMY Morphine Sulfate 4 mg 09/25/21 11:00 Morphine 4 Mg/1 Ml Inj IV Q4H PRN Pain , Severe (7-10) Ondansetron HCl 4 mg 09/25/21 11:00 Ondansetron 4 Mg/2 Ml Inj IV Q8H PRN Nausea And Vomiting Oxycodone/Acetaminophen 1 tab 09/25/21 11:00 09/27/21 09:36 Oxycodone /Acetaminophen 5-325mg Tab PO 1 tab Q6H PRN Administration Pain, Moderate (4-6) Sodium Chloride 10 ml 09/25/21 11:00 09/28/21 22:00 Sodium Chloride 0.9% 10 Ml Flush Syringe IV 10 ml BID TOMMY Administration Sodium Chloride 10 ml 09/25/21 11:00 Sodium Chloride 0.9% 10 Ml Flush Syringe IV PRN PRN LINE FLUSH Sodium Chloride 2 gm 09/27/21 10:00 09/28/21 22:16 Sodium Chloride 1 Gm Tab PO 2 gm TID TOMMY Administration
[2021-09-29] MEDS: levETIRAcetam 500 MG in DEXTROSE 5% IN WATER 100 ML IV SCH (10:34)
[2021-09-29] MEDS: THIAMINE 100 MG in SODIUM CHLORIDE 0.9% 50 ML IV SCH (10:35)
[2021-09-29] MEDS: SODIUM CHLORIDE 1 GM TAB PO SCH ×2 (10:35→14:58)
[2021-09-29] MEDS: FOLIC ACID 1 MG in SODIUM CHLORIDE 0.9% 50 ML IV SCH (10:35)
[2021-09-29] MEDS ORDERED: MAGNESIUM OXIDE 400 MG TAB PO SCH (11:00)
[2021-09-29 12:43] VITALS: BP 108/79
--- NOTE | 2021-09-29 13:08 | Discharge Summary ---
Providers - Providers Date of Admission: 09/25/21 10:11 Date of discharge: 09/29/21 Attending physician: MCKENNA ROBINS MD 09/25/21 10:11 Consult to Physician [CONS] Urgent Comment: Consulting Provider: TD FERRELL Physician Instructions: Reason For Exam: Hyponatremia 09/26/21 08:46 Consult to Physician [CONS] Routine Comment: Consulting Provider: RUTH ROD Physician Instructions: Reason For Exam: hx of seizure 09/28/21 07:42 Physical Therapy Evaluation and Treat [CONS] Routine Comment: Pending discharge Reason For Exam: Unsteadiness after seizures Primary care physician: CABLE [employer]SEM[facility]ER Hospitalization Reason for admission: Seizure disorder and hyponatremia Condition: Stable Pertinent studies: Reviewed. Procedures: None. Hospital course: Patient is a 55-year-old male history of seizure disorder noncompliant with medication who was found down on the side of the road and was brought to the ED. Observed seizures while in the ED. Also found to have a sodium of 120. Admitted to medicine for further care. Neurology was consulted for work-up of syncope and seizure disorder. The patient was initiated on Keppra 500 mg twice daily for seizure cessation. MRI brain with gadolinium was negative for possible CVA. Patient's hyponatremia and hypomagnesemia have since resolved. Patient required 3% saline for hyponatremia in the setting of seizure. Patient was counseled at length about alcohol and tobacco cessation; however, the patient was not fully interested in the counseling at that point in time. Patient does acknowledge that he needs to reduce his alcohol intake. Patient is medically cleared for discharge. Disposition: 01 HOME / SELF CARE / HOMELESS Final Discharge Diagnosis (Prints w/discharge instructions): Syncope, seizure disorder, hyponatremia, hypomagnesemia, alcohol dependence tobacco dependence Time spent for discharge: 45 minutes Core Measure Documentation - Palliative Care Palliative Care/ Comfort Measures: Not Applicable - Core Measures Any of the following diagnoses?: none - VTE Discharge Requirements Deep Vein Thrombosis/Pulmonary Embolism Present on Admission: No Has pt received <5 days of overlap therapy or INR<2.0: No (Not indicated) Anticoagulant overlap therapy prescribed at discharge: No Contraindication No Overlap Therapy order at DC: Not Indicated - Acute MA Discharge Requirements Aspirin at discharge: No Reason for no aspirin on DC: Medical contraindication (Not indicated) XIMENA/ARB for LVSD if EF <40%: Not Applicable Reason for no XIMENA/ARB: Medical contraindication (Not indicated) Beta leo at discharge: No Reason for no beta leo on DC: Medical contraindication (Not indicated) Statin for LDL = or >100 mg/dl on DC: Not Applicable Reason for no statin on DC: Medical contraindication (Not indicated) - Heart Failure Discharge Requirements XIMENA/ARB for LVSD if EF <40%: Not Applicable Reason for no XIMENA/ARB: Medical contraindication (Not indicated) Beta leo at discharge: No Reason for no beta leo on DC: Medical contraindication (Not indicated) - Stroke Discharge Requirements Statin for LDL = or >70 mg/dl on DC: Not Applicable Reason for no statin on DC: Not Indicated Anticoag for atrial fib/atrial flutter: Not Applicable Reason for no anticoag for AF/F on DC: Not Indicated Antithrombotic for ischemic stroke: No Reason for no antithrombotic on DC: Not Indicated Exam - Constitutional Vitals: Temp Pulse Resp BP Pulse Ox 98.3 F 92 H 18 108/79 100 09/29/21 11:44 09/29/21 11:44 09/29/21 11:44 09/29/21 11:44 09/29/21 11:44 General appearance: Present: no acute distress, well-nourished, disheveled - EENT Eyes: Present: PERRL, EOM intact ENT: hearing intact, clear oral mucosa - Neck Neck: Present: supple, normal ROM - Respiratory Respiratory effort: normal Respiratory: bilateral: CTA - Cardiovascular Rhythm: regular Heart Sounds: Present: S1 & S2 - Extremities Extremities: no ischemia, pulses intact, pulses symmetrical, No edema, normal temperature, normal color, Full ROM Peripheral Pulses: within normal limits - Abdominal General gastrointestinal: Present: soft, non-tender, non-distended, normal bowel sounds Male genitourinary: Present: deferred - Rectal Rectal Exam: deferred - Integumentary Integumentary: Present: clear, warm, dry - Musculoskeletal Musculoskeletal: strength equal bilaterally - Psychiatric Psychiatric: appropriate mood/affect, cooperative, other (Limited insight) - Neurologic Neurologic: CNII-XII intact, moves all extremities - Allied Health Allied health notes reviewed: nursing Plan Activity: no restrictions Diet: regular Care Plan Goals: Patient is safe to discharge home. Assessment: Patient was admitted for management of seizure disorder complicated by hyponatremia. The patient's hyponatremia improved with 3% normal saline and fluid restriction. The patient was reinitiated on Keppra 500 mg twice daily for seizure control. Patient underwent MRI brain with gadolinium that found no acute abnormalities. Patient is safe to discharge home. Follow up with: PRIMARY CARE, [Primary Care Provider] - 7 Days Prescriptions: levETIRAcetam [Keppra TAB] 500 mg PO BID #60 tablet Thiamine [Vitamin B-1] 100 mg PO QDAY #30 tablet
[2021-09-29] MEDS ORDERED: levETIRAcetam 500 MG/5 ML ORAL LIQD PO SCH (22:00)
[2021-09-30] MEDS ORDERED: THIAMINE 100 MG TAB PO SCH (10:00)
[2021-09-30] MEDS ORDERED: FOLIC ACID 1 MG TAB PO SCH (10:00)
== END 2021-09-29 16:22 | disposition home or self-care (01) | DRG 101 ==
LOC: ED 05:54 → 4A 10:11
PROVIDERS: ADMIT Student in an Organized Health Care Education/Training Program; ATTEND Student in an Organized Health Care Education/Training Program
DX: G40.909 Epilepsy, unspecified, not intractable, without status epilepticus (principal); E87.1 Hypo-osmolality and hyponatremia; R55 Syncope and collapse; F10.20 Alcohol dependence, uncomplicated; F17.210 Nicotine dependence, cigarettes, uncomplicated; E83.42 Hypomagnesemia
CPT/HCPCS: 36415; 70450; 70553; 71045; 72125; 80048; 80053; 80307; 80320; 81001; 82803; 82805; 82962; 83735; 84100; 84295; 84300; 85007; 85025; 93005; 93306; 95819; G0378; J3490; J7060; Q0162; A9575; G0480; J1953; J2060; J2597; J3411; J3475; J7030